=== PATIENT | female | born 1940 | race Caucasian/White ===

== ENCOUNTER 2019-06-11 19:49 | Inpatient (IN) | payer MEDICARE, OTHER, SELFPAY ==
--- NOTE | 2019-06-11 20:10 | ED_ITS ---
Entered by Celeste Rashid, acting as scribe for Li Stockton MD, [facility] [place]PI - URI/Sore Throat General: Chief Complaint: General Medical Stated Complaint: PNEUMONIA Time Seen by Provider: 06/11/19 20:06 History of Present Illness: HPI Narrative: 79 yo f came to the er by ems. Onset was today. Pt states that she is unsure why she is here today. Ems states that pt came from the [facility] and that she had an chest xray do ne yesterday and it shown that pt has pneumonia. Pt has dementia and was unsure what was going on. Consistency: intermittent Severity: mild Able to tolerate fluids by mouth: Yes Exacerbating factors: nothing Relieving factors: nothing Context: sick contacts Associated symptoms: Reports no associated symptoms Review of Systems General: Reports: ROS unobtainable due to medical condition (dementia) PFSH ED PFSH: Statuses (acute, chronic, etc) shown below reflect problem list status as previously entered and may not be historically accurate Medical History (Updated 06/12/19 @ 01:05 by Li Stockton MD, [facility] Alzheimer's dementia (Acute) Dyslipidemia (Acute) [place]'s disease (Acute) Hypertension (Acute) Hypothyroidism (Acute) Surgical History (Updated 06/11/19 @ 23:03 by Kirsten Bang MD) History of open reduction and internal fixation (ORIF) procedure (Acute) for R subtronchanteric femur fracture, done in 02/2019 at [facility] [place] Social History Smoking and tobacco status: unknown if ever smoked Physical Exam Const: COMMON NORMALS: no apparent distress, average body habitus, oriented x3, no limitations, healthy appearing, alert and well nourished HENMT: COMMON NORMALS: normocephalic, head/scalp atraumatic, hearing grossly normal bilaterally, external ears normal, EAC's normal, TM's normal bilaterally, external nose normal, nasal mucous membranes and turbinates normal, moist oral mucous membranes, oropharynx normal, dentition normal and gingiva normal HEAD & SCALP: normocephalic and atraumatic NOSE: external nose normal and nasal mucous membranes and turbinates normal EXTERNAL EAR: Yes external ears normal EXTERNAL AUDITORY CANAL: EAC's normal TYMPANIC MEMBRANE: TM's normal bilaterally Eye: COMMON NORMALS: PERRL, EOMs intact bilaterally, conjunctivae normal, no scleral icterus, no papilledema, normal visual mcdermott by confrontation and fundi normal bilaterally CONJUNCTIVA: Yes conjunctivae normal PUPIL: Yes PERRL DIRECT OPHTHALMOSCOPY: Yes no papilledema and Yes fundi normal bilaterally Neck/C-Spine: COMMON NORMALS: full ROM, supple, no meningeal signs, no JVD and no carotid bruits Chest: COMMONS NORMALS: inspection of chest normal and palpation of chest normal Resp: COMMON NORMALS: normal respiratory effort, no retractions and no use of accessory muscles AUSCULTATION: diminished lung sounds on the left Cardio: COMMON NORMALS: no JVD, regular rate, regular rhythm, S1 normal heart sound, S2 normal heart sound, no gallops, no clicks, no murmurs, no rub and peripheral pulses 2+ throughout RATE: regular rate RHYTHM: regular rhythm HEART SOUNDS: S1 normal and S2 normal PERIPHERAL PULSES: pulses 2+ throughout GI: COMMON NORMALS: normal to inspection, nondistended, normoactive bowel sounds, soft to palpation, non-tender, no hepatosplenomegaly, no masses and no bruits PALPATION: Yes soft and Yes no hepatosplenomegaly : COMMON NORMALS: Yes no CVA tenderness BLADDER/KIDNEY EXAM: Yes no CVA tenderness Back/Pelvis: COMMON NORMALS: no CVA tenderness Extremity: COMMON NORMALS: normal to inspection, full ROM, normal capillary refill, no joint enlargement, no clubbing, cyanosis or edema, no calf tenderness and no pedal edema Neuro: COMMON NORMALS: oriented x3 SENSORIUM/ORIENTATION: Yes alert MENINGEAL SIGNS: Yes no meningeal signs Skin: COMMON NORMALS: no rashes or lesions noted, no wounds, skin turgor normal, no jaundice, no petechiae and no mottling GENERAL SKIN EXAM: no rashes or lesions noted and turgor normal Procedures Chest Tube Chest Tube 1: Chest Tube Location: left and fifth interspace Size of Tube (cm): 58 Chest Tube Prep: Yes betadine prep Local Anesthetic: lidocaine 1% Amount of anesthesia used (mL): 5 Incision Made With: #11 blade Post Procedure: sutured to skin and sterile dressing applied Tube Drainage: blood Amount of initial drainage (mL): 2,400 Post Procedure CXR?: Yes Patient Tolerated Procedure: Yes Course Vital Signs: Vital signs: Vital Signs Temperature 98.2 F 06/11/19 20:21 Pulse Rate 90 06/12/19 00:54 Respiratory Rate 18 06/12/19 00:54 Blood Pressure 122/76 06/12/19 00:54 Pulse Oximetry 94 06/12/19 00:54 MDM - URI/Sore Throat MDM Narrative: Medical decision making narrative: Patient was sent to the ED from the half-way with a diagnosis of pneumonia. She had a chest x-ray done yesterday and they said it showed pneumonia so she was sent to the ED for evaluation. Chest x-ray done showed a white out on her left lung and on CT scan which showed massive pleural effusion with shift of the mediastinal contents to the right and compression of her lungs. Surprisingly she was hemodynamically stable however with concerns that she may suddenly decompensate given her age and the size of the effusion a decision was made to place a chest tube in the emergency department. A size 28 chest tube was inserted which drained bloody fluid. She drained about 2500 mL initially. She remained hemodynamically stable during and after the procedure. Chest x-ray performed after showed partial expansion of the left lung and there is no longer a right shift of the mediastinal contents. Lab Data: Labs: Lab Results 06/11/19 06/11/19 06/11/19 Range/Units 19:36 19:36 19:36 WBC 8.9 (4.0-10.0) 10^3/ uL RBC 4.57 (4.1-5.3) 10^6/u L Hgb 13.1 (11.5-15.3) g/dL Hct 43.2 (37.0-47.0) % MCV 94.5 (81-99) fL MCH 28.7 (28.0-34.0) pg MCHC 30.3 (30.0-36.0) g/dL RDW 13.3 (12.1-15.1) % Plt Count 416 H (130-400) 10^3/c mm MPV 9.9 (7.4-10.4) fL Neut % (Auto) 64.5 % Lymph % (Auto) 21.7 % [place] % (Auto) 10.5 % Eos % (Auto) 2.3 % Baso % (Auto) 0.7 % Neut # (Auto) 5.7 (1.8-7.7) 10^3/u L Lymph # (Auto) 1.9 (0.8-4.8) 10^3/u L [place]ck[place] # (Auto) 0.9 (0.2-0.9) 10^3/u L Eos # (Auto) 0.2 (0.0-0.8) 10^3/u L Baso # (Auto) 0.1 (0.0-0.1) 10^3/u L Nucleated RBC % (a uto) 0 % Nucleated RBCs # 0.0 /100WBC PT 14.60 H (10.5-13.3) SECO NDS INR 1.11 (0.8-1.2) Sodium 147 H (136-145) mmol/L Potassium 3.7 (3.5-5.1) mmol/L Chloride 107 (98-107) mmol/L Carbon Dioxide 28 (22-29) mmol/L Anion Gap 15.7 (5-19) BUN 20 (8-23) mg/dL Creatinine 0.7 (0.5-0.9) mg/dL Calcium 9.3 (8.8-10.2) mg/Dl Total Bilirubin 0.3 (0.15-1.2) mg/dL AST 24 (0-32) U/L ALT 11 (0-33) U/L Alkaline Phosphata se 128 H (35-105) IU/L Total Protein 7.2 (6.6-8.7) g/dL Albumin 3.8 (3.5-5.2) g/dL Globulin 3.4 (1.3-4.6) g/dL Influenza Type A A g (Negative) POC Influenza B Ag (Negative) 06/11/19 Range/Units Unknown WBC (4.0-10.0) 10^3/ uL RBC (4.1-5.3) 10^6/u L Hgb (11.5-15.3) g/dL Hct (37.0-47.0) % MCV (81-99) fL MCH (28.0-34.0) pg MCHC (30.0-36.0) g/dL RDW (12.1-15.1) % Plt Count (130-400) 10^3/c mm MPV (7.4-10.4) fL Neut % (Auto) % Lymph % (Auto) % [place] % (Auto) % Eos % (Auto) % Baso % (Auto) % Neut # (Auto) (1.8-7.7) 10^3/u L Lymph # (Auto) (0.8-4.8) 10^3/u L [place] # (Auto) (0.2-0.9) 10^3/u L Eos # (Auto) (0.0-0.8) 10^3/u L Baso # (Auto) (0.0-0.1) 10^3/u L Nucleated RBC % (a uto) % Nucleated RBCs # /100WBC PT (10.5-13.3) SECO NDS INR (0.8-1.2) Sodium (136-145) mmol/L Potassium (3.5-5.1) mmol/L Chloride (98-107) mmol/L Carbon Dioxide (22-29) mmol/L Anion Gap (5-19) BUN (8-23) mg/dL Creatinine (0.5-0.9) mg/dL Calcium (8.8-10.2) mg/Dl Total Bilirubin (0.15-1.2) mg/dL AST (0-32) U/L ALT (0-33) U/L Alkaline Phosphata se (35-105) IU/L Total Protein (6.6-8.7) g/dL Albumin (3.5-5.2) g/dL Globulin (1.3-4.6) g/dL Influenza Type A A g Negative (Negative) POC Influenza B Ag Negative (Negative) Discharge Plan Discharge Patient Disposition: Admitted As Inpatient Clinical Impression: Pleural effusion Condition: Stable Prescriptions: No Action latanoprost 0.005 % Drops 1 drp OPHTHALMIC (EYE) DAILY RF: 0 atorvastatin 10 mg Tablet 10 mg PO QPM RF: 0 donepezil 10 mg Tablet 10 mg PO DAILY RF: 0 levothyroxine 88 mcg Tablet 88 mcg PO DAILY RF: 0 Xanax 0.25 mg Tablet 0.25 mg PO DAILY PRN (Reason: Anxiety) RF: 0 Milk of Magnesia 400 mg/5 mL Suspension 5 ml PO DAILY PRN (Reason: Constipation) RF: 0 amlodipine 10 mg Tablet 10 mg PO DAILY RF: 0 aspirin 81 mg Tablet,Chewable 81 mg PO DAILY RF: 0 Remeron 15 mg Tablet 7.5 mg PO BEDTIME RF: 0 Flonase Allergy Relief 50 mcg/actuation [place],Suspension 1 spray INTRANASAL BEDTIME RF: 0 memantine 10 mg Tablet 10 mg PO BID RF: 0 Tylenol 325 mg Capsule 325 mg PO QID PRN (Reason: Pain) RF: 0 Ferrex 150 Forte Plus 150-60-25-1 vf-wh-boc-mg Capsule 1 cap PO BID RF: 0 Adults Multivitamin 18 mg iron-400 mcg-25 mcg Tablet 1 tab PO DAILY RF: 0 Colace Liq 50 mg/ml suspension 10 ml PO BID PRN (Reason: Constipation) RF: 0 Referrals: Linda Brooke NP [Primary Care Provider] - Isai Lechuga MD [Family Provider] - Coding Level of Care Code ED Document Management Analyst for Chg Fwd Exam Problem Focused The documentation recorded by the Rachid colvin Stephanie Lyn, accurately reflects the service I personally performed and the decisions made by Mahin kamara Adegoke I, MD, [facility] Jun 11, 2019 19:49
[2019-06-11 20:21] VITALS: BP 132/69; PULSE 98; RESP 17; TEMP 36.8; O2SAT 98; BMI 23.0
--- NOTE | 2019-06-11 20:21 | XR_ITS ---
WS: [id number] Portable AP upright chest, 06/11/2019 Clinical Data: shortness of breath Comparison: Portable chest, 03/26/2019. Findings: There is a massive left pleural effusion causing deviation of the trachea and heart from le ft to right. The right lung is clear. The pulmonary vascularity is not increased. No pneumonia or pne umothorax is seen. XR/XR chest 1V portable [id number] Impression: 1. Huge left pleural effusion. 2. Deviation of the trachea and heart from left to right.
[2019-06-11 20:36] VITALS: BP 132/69; PULSE 97; PULSE 98; RESP 17; O2SAT 99
[2019-06-11 21:18] LABS: Influenza A by IFA Negative (Negative); Influenza B by IFA Negative (Negative)
[2019-06-11 21:18] LABS: Basophils # 0.1 10^3/uL (0.0-0.1); Basophils % 0.7 %; Eosinophils # 0.2 10^3/uL (0.0-0.8); Eosinophils % 2.3 %; Hematocrit 43.2 % (37.0-47.0); Hemoglobin 13.1 g/dL (11.5-15.3); Lymphocytes # 1.9 10^3/uL (0.8-4.8); Lymphocytes % 21.7 %; Mean Corpuscular HGB Conc 30.3 g/dL (30.0-36.0); Mean Corpuscular Hemoglobin 28.7 pg (28.0-34.0); Mean Corpuscular Volume 94.5 fL (81-99); Mean Platelet Volume 9.9 fL (7.4-10.4); Monocytes # 0.9 10^3/uL (0.2-0.9); Monocytes % 10.5 %; Neutrophils # 5.7 10^3/uL (1.8-7.7); Neutrophils % 64.5 %; Nucleated Red Blood Cells % 0 %; Platelet Count 416 10^3/cmm (130-400); Red Blood Count 4.57 10^6/uL (4.1-5.3); Red Cell Distribution Width 13.3 % (12.1-15.1); White Blood Count 8.9 10^3/uL (4.0-10.0)
[2019-06-11 21:36] LABS: Alanine Aminotransferase 11 U/L (0-33); Albumin Level 3.8 g/dL (3.5-5.2); Alkaline Phosphatase 128 IU/L (35-105); Anion Gap 15.7 (5-19); Aspartate Amino Transferase 24 U/L (0-32); Blood Urea Nitrogen 20 mg/dL (8-23); Calcium 9.3 mg/Dl (8.8-10.2); Carbon Dioxide 28 mmol/L (22-29); Chloride 107 mmol/L (98-107); Globulin 3.4 g/dL (1.3-4.6); Potassium 3.7 mmol/L (3.5-5.1); Sodium 147 mmol/L (136-145); Total Bilirubin 0.3 mg/dL (0.15-1.2); Total Protein 7.2 g/dL (6.6-8.7)
--- NOTE | 2019-06-11 21:52 | CTR_ITS ---
PROCEDURE INFORMATION: Exam: CT Chest With Contrast Exam date and time: 06/11/2019 10:10 PM Age: 79 years old Clinical indication: Shortness of breath; Patient HX: Limited HX due to PT condition, no recent priors, no family traveled to er with patient. ; Additional info: SOB TECHNIQUE: Imaging protocol: Computed tomography of the chest with intravenous contrast. Total DLP: 577.33 mGy-cm Radiation optimization: All CT scans at this facility use at least one of these dose optimization techniques: automated exposure control; mA and/or kV adjustment per patient size (includes targeted exams where dose is matched to clinical indication); or iterative reconstruction. Contrast material: OMNIPAQUE 300; Contrast volume: 95 ml; Contrast route: IV; COMPARISON: CR XR chest 1V portable [id number] 06/11/2019 8:48 PM FINDINGS: Lungs: Right lower lobe atelectasis versus infiltrate. Pleural space: Unremarkable. No pneumothorax. No pleural effusion. Heart: Coronary artery atherosclerotic calcifications. Mediastinum: Large left pleural effusion with compression of the left lung and rightward mediastinal shift. Aorta: Unremarkable. No aortic aneurysm. Lymph nodes: Unremarkable. No enlarged lymph nodes. Bones/joints: Unremarkable. No acute fracture. Soft tissues: Unremarkable. CT/CT chest w con* [id number] IMPRESSION: 1. Large left pleural effusion with compression of the left lung and rightward mediastinal shift. 2. Right lower lobe atelectasis versus infiltrate. Radiation Dose CTDIVOL = (mGy): DLP = 577.33 (mGy-cm)
[2019-06-11 22:32] VITALS: BP 150/79; PULSE 92; RESP 14; O2SAT 97
[2019-06-11] MEDS: iohexol 300 mg/mL 100 mL Btl IV (22:46)
[2019-06-11] MEDS: cefepime 2,000 MG in sodium chloride 0.9% (plus) 50 ML 100 MG IV (22:55)
--- NOTE | 2019-06-11 23:00 | P.HP_ITS ---
Providers/Chief Complaint Admitting Physician: Kirsten Bang MD Primary Care Provider: Linda Brooke NP Chief Complaint: PNEUMONIA History of Present Illness Therese Rashid is a 79 year old female with PMHx of HTN, Hypothyroidism, Alzheimer's dementia, Pat's disease, Dyslipidemia; presents via EMS from [place] for evaluation of noted hypoxia as well as an unwitnessed fall earlier today. Patient is significantly disoriented at baseline so unable to provide much history, history obtained from [facility] staff as well as review of medical record. Per nursing staff patient is alert but disoriented at baseline, typically ambulates independently and is quite interactive but at some point today was found on the floor having hit her head on the corner of a trash can in her room. She reportedly did not seem different in terms of her mental status following the fall but at some point got a chest x-ray which was noted as abnormal with questionable pneumonia so she was sent to the hospital for further evaluation. She was apparently slightly hypoxic on EMS arrival and was placed on 2 L nasal cannula. Does not appear to be in any distress during my assessment in the ER. Chest x-ray was reviewed by me and with Dr. Stockton and patient has white out on the left so CT scan of the chest was ordered. She has a large left pleural effusion with noted mediastinal shift to the right. She has some evidence of lower extremity edema as well, there is no baseline echo on record and she is not on any diuretics per review of her medications. Her vital signs are stable though she is somewhat hypoxic on room air so requested that she be placed on 2 L nasal cannula. She did receive a dose of cefepime due to concern for infection prior to imaging being available. Her lab work indicates a normal white count at 8.9, normal hemoglobin at 13.1, BNP of 669, normal renal function, negative influenza screen. I will start her on IV diuresis, order echo and request ultrasound-guided thoracentesis for the a.m. As patient is not currently in any distress will carefully watch her overnight, will request CSU admission. Due to history of unwitnessed fall will order CT scan of the head as well. Confirmed CODE STATUS is DNR/DNI with [facility] staff. Review of Systems General: Reports: ROS unobtainable due to mental status Medications/Allergies Home Medications Medication Instructions Recorded Confirmed Last Taken Type Colace Liq 10 ml PO BID PRN 06/11/19 06/11/19 Unknown History acetaminophen [Tylenol] 325 mg PO QID PRN 06/11/19 06/11/19 Unknown History alprazolam [Xanax] 0.25 mg PO DAILY PRN 06/11/19 06/11/19 Unknown History amlodipine 10 mg PO DAILY 06/11/19 06/11/19 Unknown History aspirin 81 mg PO DAILY 06/11/19 06/11/19 Unknown History atorvastatin 10 mg PO QPM 06/11/19 06/11/19 Unknown History donepezil 10 mg PO DAILY 06/11/19 06/11/19 Unknown History fluticasone propionate [Flonase 1 spray INTRANASAL BEDTIME 06/11/19 06/11/19 Unknown History Allergy Relief] iron aspgly,[id number]-Na-nsp 1 cap PO BID 06/11/19 06/11/19 Unknown History [Ferrex 150 Forte Plus] latanoprost 1 drp OPHTHALMIC (EYE) DAILY 06/11/19 06/11/19 Unknown History levothyroxine 88 mcg PO DAILY 06/11/19 06/11/19 Unknown History magnesium hydroxide [Milk of 5 ml PO DAILY PRN 06/11/19 06/11/19 Unknown History Magnesia] memantine 10 mg PO BID 06/11/19 06/11/19 Unknown History mirtazapine [Remeron] 7.5 mg PO BEDTIME 06/11/19 06/11/19 Unknown History tsngfvlrvplv-ilg-qaqs-FA-vit K 1 tab PO DAILY 06/11/19 06/11/19 Unknown History [Adults Multivitamin] Allergies Allergy/AdvReac Type Severity Reaction Status Date / Time Aohxfrq-Arc-Xjw Reductase Allergy Unknown Verified 06/11/19 20:35 Inhibitor sulfacetamide Allergy Unknown Verified 06/11/19 20:34 PFSH Acute 2 PFSH: Statuses (acute, chronic, etc) shown below reflect problem list status as previously entered and may not be historically accurate Medical History (Updated 06/11/19 @ 23:28 by Kirsten Bang MD) Alzheimer's dementia (Acute) Dyslipidemia (Acute) Exeland's disease (Acute) Hypertension (Acute) Hypothyroidism (Acute) Surgical History (Updated 06/11/19 @ 23:03 by Kirsten Bang MD) History of open reduction and internal fixation (ORIF) procedure (Acute) for R subtronchanteric femur fracture, done in 02/[address] [facility] [place] Social History Smoking and tobacco status: unknown if ever smoked Vitals/I&O/Wt Last Vital Signs Temp 98.2 F 06/11/19 20:21 Pulse 92 06/11/19 22:32 Resp 14 06/11/19 22:32 BP 150/79 06/11/19 22:32 Pulse Ox 97 06/11/19 22:32 Weight last 48 hrs Weight 58.967 kg Physical Exam Const: COMMON NORMALS: no apparent distress GENERAL APPEARANCE: cooperative and comfortable ORIENTATION/CONSCIOUSNESS: Yes awake; not oriented to person, not oriented to place and not oriented to time HENMT: COMMON NORMALS: normocephalic, head/scalp atraumatic and moist oral mucous membranes HEAD & SCALP: normocephalic and atraumatic OTHER: hard of hearing Eye: COMMON NORMALS: PERRL, EOMs intact bilaterally and conjunctivae normal CONJUNCTIVA: Yes conjunctivae normal PUPIL: Yes PERRL Neck/C-Spine: COMMON NORMALS: full ROM GENERAL: Yes normal visual inspection and Yes trachea midline Resp: COMMON NORMALS: normal respiratory effort, no retractions, no use of accessory muscles and clear to auscultation bilaterally EFFORT & INSPECTION: Yes able to speak in complete sentences, Yes symmetric chest movement and No tachypneic OTHER: equal air entry bilaterally, intermittently desaturates on RA to high 80s, no accessory muscle use, no retractions Cardio: COMMON NORMALS: regular rate, regular rhythm, S1 normal heart sound, S2 normal heart sound and no murmurs RATE: regular rate RHYTHM: regular rhythm HEART SOUNDS: S1 normal and S2 normal GI: COMMON NORMALS: normal to inspection, nondistended, normoactive bowel sounds, soft to palpation and non-tender PALPATION: Yes soft Extremity: COMMON NORMALS: normal to inspection, full ROM and no clubbing, cyanosis or edema; negative for no pedal edema Neuro: COMMON NORMALS: oriented x3, moves all extremities, no focal motor deficits and no sensory deficits noted Psych: COMMON NORMALS: cooperative, affect normal and speech normal SPEECH: Yes normal speech THOUGHT PROCESS: normal thought process Skin: COMMON NORMALS: no rashes or lesions noted, no jaundice, no petechiae and no mottling GENERAL SKIN EXAM: no rashes or lesions noted Data : 06/11/19 19:36 06/11/19 19:36 A&P Assessment and plan (1) Abnormal CXR: -noted white-out on L side, report pending -CT chest done showing large left pleural effusion with rightward mediastinal shift -Request ultrasound-guided thoracentesis in a.m. Will keep NPO after midnight -Close monitoring of respiratory status -Supplemental oxygen as needed; BiPAP if needed -No baseline echo so order this -start on IV diuresis with Lasix -close monitoring of vital signs -monitor Is & Os, daily weights -monitor renal function, lytes with diuresis -no need for antibiotics as unlikely to be infection -telemetry monitoring -hold AC, aspirin in anticipation of thoracentesis -check coags Status: Acute Code(s): R93.89 - Abnormal findings on diagnostic imaging of other specified body structures (2) Alzheimer's dementia: -at baseline is alert but disoriented -resume dementia meds -fall precautions, aspiration precautions -re-orient as needed Status: Acute Qualifiers: Alzheimer's disease onset: unspecified onset Dementia behavioral disturbance: without behavioral disturbance Qualified Code(s): G30.9 - Alzheimer's disease, unspecified; F02.80 - Dementia in other diseases classified elsewhere without behavioral disturbance Code(s): G30.9 - Alzheimer's disease, unspecified; F02.80 - Dementia in other diseases classified elsewhere without behavioral disturbance (3) Hypertension: -monitor vital signs -per NH is on catapres patch qweekly and amlodipine Status: Acute Qualifiers: Hypertension type: essential hypertension Qualified Code(s): I10 - Essential (primary) hypertension Code(s): I10 - Essential (primary) hypertension (4) Hypothyroidism: -resume levothyroxine Status: Acute Qualifiers: Hypothyroidism type: unspecified Qualified Code(s): E03.9 - Hypothyroidism, unspecified Code(s): E03.9 - Hypothyroidism, unspecified (5) Dyslipidemia: -resume statin Status: Acute Code(s): E78.5 - Hyperlipidemia, unspecified Additional A&P Information -Advanced age -Exeland's disease -keep NPO after midnight for thoracentesis -DVT ppx with SCDs for now, hold AC for procedure -Dispo: return [facility] -Code status: DNR/DNI; paperwork in chart, confirmed with [facility] staff -admit to [facility] Attestations Medical Necessity Statement*: Therese Rashid's hospital stay will require greater than 2 midnights for management of noted large left pleural effusion, requiring IV diuresis and pending thoracentesis; with need for close monitoring of respiratory status. Time Spent in Patient Care: Greater than 35 minutes (>than 50% of time spent in counselling and/or direct pt care on unit) . Coding Level of Care Code Acute Bed Setter for Brian Fwd Diagnoses Abnormal CXR R93.89 Alzheimer's dementia G30.9; F02.80 Alzheimer's disease onset: unspecified onset Dementia behavioral disturbance: without behavioral disturbance Hypertension I10 Hypertension type: essential hypertension Hypothyroidism E03.9 Hypothyroidism type: unspecified Dyslipidemia E78.5
[2019-06-11 23:18] VITALS: BP 127/76; PULSE 64; PULSE 71; RESP 17; O2SAT 95
--- NOTE | 2019-06-11 23:21 | CTR_ITS ---
PROCEDURE INFORMATION: Exam: CT Head Without Contrast Exam date and time: 06/11/2019 11:28 PM Age: 79 years old Clinical indication: Altered mental status/memory loss; Confusion or disorientation; Additional info: Unwitnessed fall TECHNIQUE: Imaging protocol: Computed tomography of the head without contrast. Total DLP: 797.18 mGy-cm Radiation optimization: All CT scans at this facility use at least one of these dose optimization techniques: automated exposure control; mA and/or kV adjustment per patient size (includes targeted exams where dose is matched to clinical indication); or iterative reconstruction. COMPARISON: No relevant prior studies available. 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 Mild atrophy and moderate white matter chronic microvascular changes are noted. No hemorrhage or CT evidence of acute infarction is seen. Ventricles: Normal. No ventriculomegaly. Bones/joints: Unremarkable. No acute fracture. Sinuses: Visualized sinuses are unremarkable. No fluid levels. Mastoid air cells: Visualized mastoid air cells are well aerated. Soft tissues: Unremarkable. CT/CT head wo con* [id number] IMPRESSION: No acute intracranial abnormality Radiation Dose CTDIVOL = (mGy): DLP = 797.18 (mGy-cm)
[2019-06-11] MEDS: fentaNYL 50 mcg/mL INJ 2mL IVP (23:40)
[2019-06-11] MEDS: lidocaine 1% INJ 20 mL INTRADERMA (23:50)
[2019-06-11 23:59] LABS: INR 1.11 (0.8-1.2)
[2019-06-12] VITALS (9 sets, daily range): BP systolic 113–126; BP diastolic 60–79; PULSE 81–91; RESP 18–28; TEMP 36.4–37.1; O2SAT 94–97
--- NOTE | 2019-06-12 00:24 | XR_ITS ---
WS: [id number] Portable AP upright chest, 06/12/2019, 2429 hours. Clinical Data: Post chest tube insertion Comparison: Portable chest, 06/11/2019 Findings: A left chest tube has been inserted and the tip ends near the superior aspect of the left p leural space. There is a great reduction in the left pleural fluid with a moderate residual. There is a left apical pneumothorax of 5%. The mediastinal shift is no longer present and the trachea and hea rt are in normal position. The right lung remains clear. Monitor leads on the chest wall. XR/XR chest 1V portable [id number] Impression: 1. Insertion of left chest tube with reduction of left pleural fluid. 2. Small left apical pneumothorax. 3. Reduction of left to right mediastinal shift.
[2019-06-12 01:11] LABS: C Reactive Protein 29.4 mg/L (0.0-4.9); Glucose 113 mg/dL (74-106)
--- NOTE | 2019-06-12 01:42 | XR_ITS ---
WS: [id number] Portable AP upright chest, 06/12/2019, 0139 hours. Clinical Data: chest tube placement Comparison: Portable chest, 06/12/2019, 2429 hours. Findings: The left chest tube remains in the same position. There is still a residual moderate left p leural effusion. There are opacities throughout the left lung which may represent a pneumonia. The ri ght lung remains clear. The small left apical pneumothorax has not changed. XR/XR chest 1V portable [id number] Impression: 1. No change in left chest tube, left apical pneumothorax and moderate left eff usion. 2. Opacities throughout the left lung which could represent pneumonia.
[2019-06-12] MEDS: FUROsemide 10 mg/mL SDV 4mL 40 MG IVP ×3 (01:56→23:11)
--- NOTE | 2019-06-12 02:05 | PC.NURSE ---
Called report to Mary in CSU
--- NOTE | 2019-06-12 03:22 | PC.NURSE ---
0230: Patient admitted to room 111-1 from ED via stretcher with Left Pleural Effusion and Acute CHF with Exacerbation. Chest Tube in place to LLL of lung draining blood tinged fluid into pleur evac with 10cm of dry suction. Soft wrist restraints in place and checked. Able to get 2 fingers under restraints without difficulty. Chest tube secured with tape. Patient opened eyes for a very short time after being transferred to hospital bed from ED stretcher. Unable to ask questions secondary to patient's status and dementia. Oxygen applied at 3L/NC. This nurse was told that patient fell at long-term yesterday;however, up until that time, had been up and ambulating. No family at bedside. Will monitor.
--- NOTE | 2019-06-12 03:31 | PC.NURSE ---
Chest tube with 600ml in pleur evac upon arrival to floor. Area marked. Will monitor.
--- NOTE | 2019-06-12 04:40 | PC.NURSE ---
Patient awake. Soft wrist restraints in place. Had chest tube wrapped around her wrist. Explained to patient about not pulling on chest tube. It hurts and I want it out. Chest tube dressing re-enforced. Will monitor.
--- NOTE | 2019-06-12 04:55 | PC.NURSE ---
Sitter at bedside. Patient still attempting to pull chest tube out. Keeps complaining that it hurts. Informed by staff and sitter the reasoning behind the chest tube;however, patient is not comprehending. Will monitor.
[2019-06-12 04:56] LABS: Add Urine Microscopic? YES; Bilirubin Urine Neg (NEGATIVE); Blood Urine 2+ (Negative); Glucose Urine UA Norm (Normal); Ketones Urine Negative (Negative); Leukocyte Esterase Urine Negative (Negative); Nitrate Urine Negative (Negative); Protein Urine Neg (Negative); Specific Gravity, Urine 1.018 (1.005-1.030); Sulfosalicylic Acid Urine Negative; Urine Appearance Clear (CLEAR); Urine Color Straw (Yellow); Urobilinogen Urine Norm (Negative); pH Urine 8 (5-7)
[2019-06-12 05:24] LABS: Add Urine Culture? No; RBC Urine 0-4 /hpf (0-2)
[2019-06-12 05:53] LABS: Basophils # 0.1 10^3/uL (0.0-0.1); Basophils % 0.6 %; Eosinophils % 0.4 %; Hematocrit 44.8 % (37.0-47.0); Hemoglobin 13.8 g/dL (11.5-15.3); Lymphocytes % 9.9 %; Mean Corpuscular HGB Conc 30.8 g/dL (30.0-36.0); Mean Corpuscular Hemoglobin 29.1 pg (28.0-34.0); Mean Corpuscular Volume 94.3 fL (81-99); Mean Platelet Volume 9.7 fL (7.4-10.4); Monocytes # 0.8 10^3/uL (0.2-0.9); Monocytes % 7.7 %; Neutrophils # 8.5 10^3/uL (1.8-7.7); Nucleated Red Blood Cells % 0 %; Platelet Count 371 10^3/cmm (130-400); Red Blood Count 4.75 10^6/uL (4.1-5.3); Red Cell Distribution Width 13.2 % (12.1-15.1); White Blood Count 10.4 10^3/uL (4.0-10.0)
[2019-06-12 06:11] LABS: Anion Gap 16.4 (5-19); Blood Urea Nitrogen 19 mg/dL (8-23); Calcium 8.9 mg/Dl (8.8-10.2); Carbon Dioxide 28 mmol/L (22-29); Chloride 105 mmol/L (98-107); Glucose 120 mg/dL (74-106); Potassium 3.4 mmol/L (3.5-5.1); Sodium 146 mmol/L (136-145)
[2019-06-12] MEDS: levothyroxine 88 mcg Tablet PO ×2 (10:54→10:56)
[2019-06-12] MEDS: memantine 5 mg tablet 10 MG PO ×2 (10:55→17:32)
[2019-06-12] MEDS: multivitamin therapeutic Tablet 1 TAB PO (10:56)
[2019-06-12] MEDS: amlodipine 10 mg Tablet PO (10:57)
[2019-06-12] MEDS: donepezil 5 MG Tablet 10 MG PO (10:57)
--- NOTE | 2019-06-12 15:38 | PC.CHAP ---
Pastoral Care Encounter/Spiritual Assessment Type of Contact [] Declined detective and intelligence analyst visit [] Patient/Family/Request visit [] Outpatient visit [x] Follow-up visit [] Physician referral [] Code/Alert [] Routine visit [] Staff referral [] Actively dying [] Patient sleeping [] Family support [] [] Out of room [] Palliative care [] [] Receiving care in room [] Pre-surgical visit [] Trauma [] Long length of stay [] ICU visit [] Other: Relational/Emotional Strength [] Patient feels connected with others/family/visitors/staff [] Distress [] Loneliness/isolation [] Abandonment Spirituality of Patient [] Person of Charlee [] Attends Voodoo of their Charlee [] Believes in Prayer [] Reads Bible or Hoahaoism materials [] There are Spiritual issues to be addressed Trimming Operator Interventions [] Prayer [] Active listening [] Non-anxious presence [] Spiritual/emotional support [] Crisis/trauma care [] Spiritual counseling [] Bereavement support [] Provided bereavement packet [] Provided Bible/devotional materials [] Provided toy/stuffed animal, coloring book to patient or family member [] Completed spiritual assessment [] Provided Communion [] Anointing/[place] [] Salvation [] Other: Impact on Illness or Injury [] Angry [] Fearful [] Anxious [] Often cries [] Exhaustion [] Unable to work [] Unable to attend cheondoism [] Unable to walk/stand [] Unable to read [] Unable to drive [] Unable to eat/drink [] Unable to sleep [] Unable to be with family [] Other: Summary was asleep needs yo have follow up ludwig td Time spent with patient
--- NOTE | 2019-06-12 16:41 | PC.NURSE ---
conrad gonzalez from [facility] called to check on pt and states pt did not fall prior to this admission.ems was called due to respiratory distress.pt did fall...approx 1 month ago and [place] [facility] [place]
--- NOTE | 2019-06-12 18:05 | PM.CONSULT ---
Providers/Reason For Consult Consulting Physican/Specialty*: Dr. Bang Reason for Consult*: Large left hemorrhagic effusion Attending Physician: David Jorgensen Primary Care Provider: Linda Brooke NP History of Present Illness History of Present Illness Therese Rashid is a 79 year old female who was admitted in the early hours of the morning with a large left pleural effusion with mediastinal shift. A left chest tube was placed with recovery of over 2 L of bloody effusion. Ms. Rasihd has fairly advanced dementia and is a resident at a local skilled care facility and apparently was initially reported to have been found having fallen. With further discussion today between nursing service and the nursing staff at [facility], it was determined that she had not actually fallen and that she was actually being referred over because of increasing respiratory difficulties. CT scan of the chest confirmed this substantial effusion with mediastinal shift. CT scan of the head was negative for acute intracranial pathology. Left chest tube is in place with substantial improved aeration to the left lung with a small apical pneumothorax. I was consulted to assist with the management of this chest tube. Her son has been at bedside and conferred with our hospitalist colleagues. Given her multiple medical problems, they have relayed to me that he is in concurrence with consideration for conservative management of this effusion with the currently placed chest tube. 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 Chest tube output since this morning has been approximately 80 cc. She appears to be resting quite comfortably. She can answer yes and no questions though cannot answer questions concerning orientation or other facts. Review of Systems Narrative: I am unable to obtain a review of systems through questions for Ms. Rashid. Meds/Allergies Home Medications and Allergies Home Medications Medication Instructions Recorded Confirmed Type Colace Liq 10 ml PO BID PRN 06/11/19 06/11/19 History acetaminophen [Tylenol] 325 mg PO QID PRN 06/11/19 06/11/19 History alprazolam [Xanax] 0.25 mg PO DAILY PRN 06/11/19 06/11/19 History amlodipine 10 mg PO DAILY 06/11/19 06/11/19 History aspirin 81 mg PO DAILY 06/11/19 06/11/19 History atorvastatin 10 mg PO QPM 06/11/19 06/11/19 History donepezil 10 mg PO DAILY 06/11/19 06/11/19 History fluticasone propionate [Flonase 1 spray INTRANASAL BEDTIME 06/11/19 06/11/19 History Allergy Relief] iron aspgly,[id number] 1 cap PO BID 06/11/19 06/11/19 History [Ferrex 150 Forte Plus] latanoprost 1 drp OPHTHALMIC (EYE) DAILY 06/11/19 06/11/19 History levothyroxine 88 mcg PO DAILY 06/11/19 06/11/19 History magnesium hydroxide [Milk of 5 ml PO DAILY PRN 06/11/19 06/11/19 History Magnesia] memantine 10 mg PO BID 06/11/19 06/11/19 History mirtazapine [Remeron] 7.5 mg PO BEDTIME 06/11/19 06/11/19 History zsktfefjckzc-bay-maad-FA-vit K 1 tab PO DAILY 06/11/19 06/11/19 History [Adults Multivitamin] Allergies Allergy/AdvReac Type Severity Reaction Status Date / Time Xkrrtwo-Hyn-Lot Reductase Allergy Unknown Verified 06/11/19 20:35 Inhibitor sulfacetamide Allergy Unknown Verified 06/11/19 20:34 Current Medications Current Medications Generic Name Dose Route Start Last Admin Trade Name Freq PRN Reason Stop Dose Admin Amlodipine Besylate 10 mg 06/12/19 09:00 06/12/19 10:57 Norvasc PO 10 mg DAILY SARAH Administration Donepezil HCl 10 mg 06/12/19 09:00 06/12/19 10:57 Aricept PO 10 mg DAILY SARAH Administration Furosemide 40 mg 06/11/19 23:21 06/12/19 11:41 Lasix IVP 40 mg Q12H SARAH Administration Levothyroxine Sodium 88 mcg 06/12/19 09:00 06/12/19 10:56 Synthroid PO 88 mcg DAILY SARAH Administration Multivitamins Therapeutic 1 tab 06/12/19 09:00 06/12/19 10:56 Multivitamin Tab PO 1 tab DAILY SARAH Administration Potassium Chloride 40 meq 06/12/19 09:00 06/12/19 10:54 Klor-Con 10 PO 40 meq DAILY SARAH Administration PFSH Acute PFSH: Statuses (acute, chronic, etc) shown below reflect problem list status as previously entered and may not be historically accurate Medical History (Updated 06/12/19 @ 01:05 by Li Stockton MD, [facility] [place]) Alzheimer's dementia (Acute) Dyslipidemia (Acute) Quay's disease (Acute) Hypertension (Acute) Hypothyroidism (Acute) Surgical History (Updated 06/11/19 @ 23:03 by Kirsten Bang MD) History of open reduction and internal fixation (ORIF) procedure (Acute) for R subtronchanteric femur fracture, done in 02/2019 at [facility] [place] Social History Smoking and tobacco status: unknown if ever smoked Vitals/I&O/Wt Last Vital Signs Temp 98.7 F 06/12/19 16:00 Pulse 86 06/12/19 16:00 Resp 28 H 06/12/19 16:00 BP 125/60 06/12/19 16:00 Pulse Ox 96 06/12/19 16:00 06/12/19 06/12/19 06/12/19 06:59 14:59 22:59 Intake Total 0 / 0 Output Total 75 / 75 1999 Balance -75 / -75 -1999 Weight last 48 hrs Weight 131 lb 11.2 oz Weight 130 lb Physical Exam Const: COMMON NORMALS: negative for oriented x3 HENMT: COMMON NORMALS: normocephalic, hearing grossly normal bilaterally and external ears normal HEAD & SCALP: normocephalic FACE & SINUS: normal facial exam EXTERNAL EAR: Yes external ears normal Neck/C-Spine: COMMON NORMALS: no lymphadenopathy; negative for full ROM Chest: COMMONS NORMALS: inspection of chest normal (Left chest tube in place. No obvious subcutaneous emphysema or localized palpable tenderness other than the chest tube insertion site) Resp: COMMON NORMALS: no retractions and no use of accessory muscles AUSCULTATION: diminished lung sounds (Left side) on the left throughout PERCUSSION: dullness Mid: left and Lower: left Neuro: COMMON NORMALS: moves all extremities and no focal motor deficits; negative for oriented x3 Urinary Catheter Management^: Yancey: Cath Placed During This Visit: no A&P Assessment and plan (1) Pleural effusion: Large left pleural effusion, successfully treated with chest tube I recommend continue current chest tube drainage, with discontinuation determined by chest tube output and pulmonary status Status: Acute Code(s): J90 - Pleural effusion, not elsewhere classified Consult Attestations Medical Necessity Statement: Large bloody left pleural effusion, treated with chest tube Coding Level of Care Code Acute Byproducts Operator for Chg Fwd History Expanded Problem Focused Exam Expanded Problem Focused Medical Decision Making Moderate Complexity Diagnoses Pleural effusion J90
--- NOTE | 2019-06-12 19:50 | PM.PN ---
Subjective Subjective: Interval history: This morning she is asleep, but wakes up very easily. She denies any pain. Reports she is feeling well. Not oriented to place or year. Denies pain in her chest or shortness of breath. One-to-one sitter is at bedside. Vitals/I&O/Wt Last Vital Signs Temp 98.2 F 06/12/19 19:20 Pulse 91 06/12/19 19:20 Resp 22 H 06/12/19 19:20 BP 126/74 06/12/19 19:20 Pulse Ox 97 06/12/19 19:20 06/12/19 06/12/19 06/12/19 06:59 14:59 22:59 Intake Total 0 / 0 120 / 120 Output Total 75 / 75 1999 / 0 Balance -75 / -75 -1999 40 / -1960 Weight last 48 hrs Weight 59.738 kg Weight 58.967 kg Physical Exam Const: COMMON NORMALS: no apparent distress HENMT: COMMON NORMALS: oropharynx normal Neck/C-Spine: COMMON NORMALS: no JVD Chest: OTHER: Left-sided chest tube connected to Pleur-evac. Resp: COMMON NORMALS: normal respiratory effort and clear to auscultation bilaterally AUSCULTATION: clear to auscultation bilaterally Cardio: COMMON NORMALS: no JVD, regular rhythm, S1 normal heart sound, S2 normal heart sound and no murmurs RHYTHM: regular rhythm HEART SOUNDS: S1 normal and S2 normal GI: COMMON NORMALS: normal to inspection, nondistended, normoactive bowel sounds, soft to palpation and non-tender PALPATION: Yes soft Extremity: COMMON NORMALS: no joint enlargement and no pedal edema Neuro: COMMON NORMALS: moves all extremities Skin: COMMON NORMALS: no rashes or lesions noted GENERAL SKIN EXAM: no rashes or lesions noted Urinary Catheter Management^: Yancey: Cath Placed During This Visit: no A&P Assessment and plan (1) Pleural effusion: Bloody pleural effusion. Reported 2400 mL drained in ER after placement of chest tube due to compression of left lung, as well as mediastinal shift to the right. Unfortunately no fluid has been sent to the lab. Etiology is not clear for the bloody effusion. H&P reports unwitnessed fall with patient found down on the floor. She certainly is at risk of falls. Repeat discussion of hospital nursing staff with senior living reporting that no fall was seen or suspected. Reported to have had decline in oxygenation. She is afebrile, without leukocytosis, denies chest pain or shortness of breath. On expansion of the left lung appears to have some patchy findings, possibly atelectasis. Pneumonia cannot be entirely excluded, but considered less likely. Given her risk of falls, with history of falls, at this time would still consider this may be the most likely etiology, otherwise discussed with her son other etiologies are possible including possibilities like malignancy. Given her overall poor functional status, advanced dementia, preference would be given for management of the current pleural effusion, with otherwise emphasis on comfort. She has been on aspirin prior to admission per home medication list, although it is not clear as to why. Her son is not sure. Denies history of WA or CVA. He is agreeable with discontinuation. Thoracic surgery recommendations appreciated. Status: Acute Code(s): J90 - Pleural effusion, not elsewhere classified (2) Alzheimer's dementia: Advanced dementia. Status: Acute Qualifiers: Alzheimer's disease onset: unspecified onset Dementia behavioral disturbance: without behavioral disturbance Qualified Code(s): G30.9 - Alzheimer's disease, unspecified; F02.80 - Dementia in other diseases classified elsewhere without behavioral disturbance Code(s): G30.9 - Alzheimer's disease, unspecified; F02.80 - Dementia in other diseases classified elsewhere without behavioral disturbance (3) Hypertension: Blood pressures have been at goal. Status: Acute Qualifiers: Hypertension type: essential hypertension Qualified Code(s): I10 - Essential (primary) hypertension Code(s): I10 - Essential (primary) hypertension (4) Hypothyroidism: levothyroxine Status: Acute Qualifiers: Hypothyroidism type: unspecified Qualified Code(s): E03.9 - Hypothyroidism, unspecified Code(s): E03.9 - Hypothyroidism, unspecified (5) Dyslipidemia: statin Status: Acute Code(s): E78.5 - Hyperlipidemia, unspecified Additional A&P Information Advanced age Pat's disease Attestations Medical Necessity Statement*: Continue admission for assessment management of bloody pleural effusion with chest tube. Coding Level of Care Code Acute Insurance Healthcare Consultant for [facility] Diagnoses Pleural effusion J90 Alzheimer's dementia G30.9; F02.80 Alzheimer's disease onset: unspecified onset Dementia behavioral disturbance: without behavioral disturbance Hypertension I10 Hypertension type: essential hypertension Hypothyroidism E03.9 Hypothyroidism type: unspecified Dyslipidemia E78.5
[2019-06-12] MEDS: latanoprost 0.005% Op Soln 2.5 mL Btl 1 DROP EYE-BOTH (21:40)
--- NOTE | 2019-06-12 22:08 | PC.NURSE ---
Lying in bed with sitter at bedside. Pleur a vac draining blood tinged fluid. Soft wrist restraints on patient;however, they are left loose. Patient has only attempted to grab chest tube twice. Oriented to name only at this time. Will monitor.
--- NOTE | 2019-06-12 23:21 | USCV_ITS ---
Threese Rashid Age: 79 Gender: F : 1940 Exam Date: 06/12/2019 08:47 Ordering Phys: Kirsten Bang MD Technologist: Devan Parada Exam Location: [facility] [place] Indication: PEDAL EDEMA BP: 113 / 62 HR: 83 Rhythm: Sinus Technical Quality: Adequate MEASUREMENTS (Male / Female) Normal Values 2D ECHO LV Diastolic Diameter PLAX 3.3 cm 4.2 - 5.9 / 3.9 - 5.3 cm LV Systolic Diameter PLAX 2.0 cm IVS Diastolic Thickness 0.9 cm 0.6 - 1.0 / 0.6 - 0.9 cm IVS Systolic Thickness 1.1 cm LVPW Diastolic Thickness 0.8 cm 0.6 - 1.0 / 0.6 - 0.9 cm LVPW Systolic Thickness 0.9 cm LVOT Diameter 2.0 cm LV Ejection Fraction 2D Teich 72.1 % LV Ejection Fraction MOD 2C 50.3 % LV Ejection Fraction 2C AL 48.9 % LA Diameter 3.0 cm LA Width 3.2 cm LA Height 4.4 cm RA Width 3.1 cm RA Height 3.9 cm M-MODE LV Diastolic Diameter MM 4.4 cm 4.2 - 5.9 / 3.9 - 5.3 cm LV Systolic Diameter MM 3.4 cm LV Ejection Fraction MM Teich 44.3 % IVS Diastolic Thickness MM 0.9 cm 0.6 - 1.0 / 0.6 - 0.9 cm IVS Systolic Thickness MM 1.1 cm LVPW Diastolic Thickness MM 0.9 cm 0.6 - 1.0 / 0.6 - 0.9 cm LVPW Systolic Thickness MM 1.4 cm RV Diastolic Diameter MM 1.5 cm Aortic Annulus Diameter 3.5 cm LA Ao Ratio MM 0.8 MV E Point Septal Separation 1.3 cm DOPPLER AV Peak Velocity 116.0 cm/s LVOT Peak Velocity 84.0 cm/s AV Area Cont Eq vti 2.5 cm squared AV Area Cont Eq pk 2.3 cm squared MV Area PHT 5.0 cm squared Mitral E to A Ratio 0.6 MV E' Velocity 5.0 cm/s Mitral E to MV E' Ratio 9.6 Mitral E to LV E' Lateral Ratio 11.1 Mitral E to LV E' Septal Ratio 8.4 TR Peak Velocity 213.0 cm/s TR Peak Gradient 18.1 mmHg TV Peak E Velocity 82.0 cm/s Right Atrial Pressure 3.0 mmHg Pulmonary Artery Systolic Pressu 21.1 mmHg FINDINGS Left Ventricle Normal left ventricular cavity size. Normal left ventricular systolic function. No regional wall motion abnormalities. Left ventricular ejection fraction is estimated at 65 %. Grade I/IV diastolic dysfunction (abnormal relaxation filling pattern), normal to mildly elevated filling pressures. Right Ventricle The right ventricle is normal in size and function. Right Atrium The right atrium is normal in size. Left Atrium The left atrium is normal in size. Mitral Valve Moderately thickened mitral valve. Mitral annular calcification. No mitral valve stenosis. No mitral valve regurgitation. Aortic Valve Moderate aortic valve calcification. No aortic valve stenosis. No aortic valve regurgitation. No aortic valve regurgitation. Tricuspid Valve Structurally normal tricuspid valve without significant stenosis or regurgitation. Pulmonary artery systolic pressure is normal. Pulmonic Valve Structurally normal pulmonic valve without significant stenosis. There is no pulmonic regurgitation. Pericardium Normal pericardium without effusion. Aorta Normal ascending aorta dimension. CONCLUSIONS 1-Normal left ventricular cavity size. Normal left ventricular systolic function. No regional wall motion abnormalities. Left ventricular ejection fraction is estimated at 65 %. Grade I/IV diastolic dysfunction (abnormal relaxation filling pattern), normal to mildly elevated filling pressures. 2-There is no pericardial effusion. 3-No significant chamber abnormalities. 4-Pulmonary artery systolic pressure is within normal limits. 5-Right atrial pressure is around 5 mm of mercury. 6-There are no prior echocardiogram studies to compare. Lidia Simons MD (Electronically Signed) Final Date: 12 June 2019 17:28 S
[2019-06-13] VITALS (8 sets, daily range): BP systolic 102–144; BP diastolic 66–77; PULSE 85–94; RESP 14–23; TEMP 36.6–36.9; O2SAT 94–98
--- NOTE | 2019-06-13 04:16 | PC.NURSE ---
Left soft wrist restraint removed with the right one still on;however, not tied. Tolerated bed bath and CLC well. Mckenzie care completed. Denies complaints at this time. Water given without difficulty. Will monitor.
[2019-06-13 05:02] LABS: Monocytes # 1.3 10^3/uL (0.2-0.9); Nucleated Red Blood Cells % 0 %
[2019-06-13 05:12] LABS: Anion Gap 15.9 (5-19); Blood Urea Nitrogen 18 mg/dL (8-23); Calcium 8.9 mg/Dl (8.8-10.2); Carbon Dioxide 32 mmol/L (22-29); Chloride 104 mmol/L (98-107); Glucose 106 mg/dL (74-106); Potassium 3.9 mmol/L (3.5-5.1); Sodium 148 mmol/L (136-145)
[2019-06-13 05:48] LABS: Basophils # 0.1 10^3/uL (0.0-0.1); Basophils % 0.4 %; Eosinophils # 0.1 10^3/uL (0.0-0.8); Eosinophils % 0.7 %; Hematocrit 43.9 % (37.0-47.0); Hemoglobin 13.5 g/dL (11.5-15.3); Lymphocytes # 1.4 10^3/uL (0.8-4.8); Lymphocytes % 12.4 %; Mean Corpuscular HGB Conc 30.8 g/dL (30.0-36.0); Mean Corpuscular Hemoglobin 27.4 pg (28.0-34.0); Monocytes % 11.3 %; Neutrophils # 8.4 10^3/uL (1.8-7.7); Neutrophils % 74.9 %; Platelet Count 420 10^3/cmm (130-400); Red Blood Count 4.93 10^6/uL (4.1-5.3); Red Cell Distribution Width 12.9 % (12.1-15.1); White Blood Count 11.2 10^3/uL (4.0-10.0)
--- NOTE | 2019-06-13 09:49 | PC.CHAP ---
Pastoral Care Encounter/Spiritual Assessment Type of Contact [] Declined learning support specialist visit [] Patient/Family/Request visit [] Outpatient visit [] Follow-up visit [] Physician referral [] Code/Alert [] Routine visit [] Staff referral [] Actively dying [x] Patient sleeping [] Family support [] [] Out of room [] Palliative care [] [] Receiving care in room [] Pre-surgical visit [] Trauma [] Long length of stay [] ICU visit [] Other: Relational/Emotional Strength [] Patient feels connected with others/family/visitors/staff [] Distress [] Loneliness/isolation [] Abandonment Spirituality of Patient [] Person of Charlee [] Attends Congregation of their Charlee [] Believes in Prayer [] Reads Bible or Restorationist materials [] There are Spiritual issues to be addressed Scientific Software Engineer Interventions [] Prayer [] Active listening [] Non-anxious presence [] Spiritual/emotional support [] Crisis/trauma care [] Spiritual counseling [] Bereavement support [] Provided bereavement packet [] Provided Bible/devotional materials [] Provided toy/stuffed animal, coloring book to patient or family member [] Completed spiritual assessment [] Provided Communion [] Anointing/[place] [] Salvation [] Other: Impact on Illness or Injury [] Angry [] Fearful [] Anxious [] Often cries [] Exhaustion [] Unable to work [] Unable to attend denominational [] Unable to walk/stand [] Unable to read [] Unable to drive [] Unable to eat/drink [] Unable to sleep [] Unable to be with family [] Other: Summary Therese resting well. Time spent with patient
[2019-06-13] MEDS: multivitamin therapeutic Tablet 1 TAB PO (10:09)
[2019-06-13] MEDS: donepezil 5 MG Tablet 10 MG PO (10:09)
[2019-06-13] MEDS: memantine 5 mg tablet 10 MG PO ×2 (10:09→17:45)
[2019-06-13] MEDS: amlodipine 10 mg Tablet PO (10:09)
[2019-06-13] MEDS: levothyroxine 88 mcg Tablet PO (10:09)
[2019-06-13] MEDS: atorvastatin 40 mg Tablet 20 MG PO (17:45)
[2019-06-13] MEDS: dextrose 5% 250 ML 75 ML IV (17:45)
--- NOTE | 2019-06-13 21:27 | P.PN_ITS ---
Subjective Subjective: Interval history: Asleep this morning. Wakes up easily. Demands coffee. When asked whether he is in any discomfort or pain, denies, also denies shortness of breath, then again request for coffee. Vitals/I&O/Wt Last Vital Signs Temp 98.1 F 06/13/19 20:00 Pulse 86 06/13/19 15:24 Resp 20 H 06/13/19 20:00 BP 144/66 06/13/19 20:00 Pulse Ox 98 06/13/19 20:00 06/13/19 06/13/19 06/13/19 06:59 14:59 22:59 Intake Total 150 / 330 240 / 240 Output Total 2295 / 4375 175 / 175 Balance -2145 / -4045 240 / 240 -175 / 65 Weight last 48 hrs Weight 62.46 kg Weight 59.738 kg Physical Exam Const: COMMON NORMALS: no apparent distress HENMT: COMMON NORMALS: oropharynx normal Neck/C-Spine: COMMON NORMALS: no JVD Chest: OTHER: Left-sided chest tube connected to Pleur-evac. Resp: COMMON NORMALS: normal respiratory effort and clear to auscultation bilaterally AUSCULTATION: clear to auscultation bilaterally Cardio: COMMON NORMALS: no JVD, regular rhythm, S1 normal heart sound, S2 normal heart sound and no murmurs RHYTHM: regular rhythm HEART SOUNDS: S1 normal and S2 normal GI: COMMON NORMALS: normal to inspection, nondistended, normoactive bowel sounds, soft to palpation and non-tender PALPATION: Yes soft Extremity: COMMON NORMALS: no joint enlargement and no pedal edema Neuro: COMMON NORMALS: moves all extremities Skin: COMMON NORMALS: no rashes or lesions noted GENERAL SKIN EXAM: no rashes or lesions noted Urinary Catheter Management^: Yancey: Cath Placed During This Visit: no A&P Assessment and plan (1) Pleural effusion: Decreasing output from chest tube. Continue to monitor. Bloody pleural effusion. Reported 2400 mL drained in ER after placement of chest tube due to compression of left lung, as well as mediastinal shift to the right. Unfortunately no fluid has been sent to the lab. Etiology is not clear for the bloody effusion. H&P reports unwitnessed fall with patient found down on the floor. She certainly is at risk of falls. Repeat discussion of hospital nursing staff with snf reporting that no fall was seen or suspected. Reported to have had decline in oxygenation. She is afebrile, without leukocytosis, denies chest pain or shortness of breath. On expansion of the left lung appears to have some patchy findings, possibly atelectasis. Pneumonia cannot be entirely excluded, but considered less likely. She denies any shortness of breath. Does not have cough. There is no fever or tachycardia. Has mild leukocytosis. Continue to monitor. Given her risk of falls, with history of falls, at this time would still consider this may be the most likely etiology, otherwise discussed with her son other etiologies are possible including possibilities like malignancy. Given her overall poor functional status, advanced dementia, preference would be given for management of the current pleural effusion, with otherwise emphasis on comfort. She has been on aspirin prior to admission per home medication list, although it is not clear as to why. Her son was not sure. Denies history of LA or CVA. Discontinue aspirin. Status: Acute Code(s): J90 - Pleural effusion, not elsewhere classified (2) Alzheimer's dementia: Advanced dementia. Status: Acute Qualifiers: Alzheimer's disease onset: unspecified onset Dementia behavioral disturbance: without behavioral disturbance Qualified Code(s): G30.9 - Alzheimer's disease, unspecified; F02.80 - Dementia in other diseases classified elsewhere without behavioral disturbance Code(s): G30.9 - Alzheimer's disease, unspecified; F02.80 - Dementia in other diseases classified elsewhere without behavioral disturbance (3) Hypertension: Blood pressures have been at goal. 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
[2019-06-14] VITALS (20 sets, daily range): BP systolic 109–123; BP diastolic 64–77; PULSE 76–95; RESP 16–27; TEMP 36.6–36.8; O2SAT 93–98
--- NOTE | 2019-06-14 04:57 | PC.NURSE ---
Evaluated output from chest tube is 20 cc/hour
--- NOTE | 2019-06-14 05:23 | PC.NURSE ---
PATIENT HAD MINIMAL OUT PUT IN SHELTON CATHETER, CALLED HOSPITALIST SPANISH MEDICAL INTERPRETER, BLADDER SCAN REVEALED 135 CC IN BLADDER, PATENCY CHECKED FOR SHELTON AND IN AT THIS TIME. NO NEW ORDERS RECEIVED, WILL CONTINUE TO MONITOR PATIENT AND NO CHEST TUBE DRAINAGE
[2019-06-14 05:55] LABS: Basophils # 0.1 10^3/uL (0.0-0.1); Basophils % 0.7 %; Eosinophils # 0.3 10^3/uL (0.0-0.8); Hematocrit 46.4 % (37.0-47.0); Hemoglobin 14.2 g/dL (11.5-15.3); Lymphocytes # 1.5 10^3/uL (0.8-4.8); Lymphocytes % 17.5 %; Mean Corpuscular HGB Conc 30.6 g/dL (30.0-36.0); Mean Corpuscular Hemoglobin 28.5 pg (28.0-34.0); Mean Corpuscular Volume 93.2 fL (81-99); Mean Platelet Volume 9.8 fL (7.4-10.4); Monocytes % 12.2 %; Neutrophils # 5.6 10^3/uL (1.8-7.7); Neutrophils % 66.4 %; Nucleated Red Blood Cells % 0 %; Platelet Count 412 10^3/cmm (130-400); Red Blood Count 4.98 10^6/uL (4.1-5.3); Red Cell Distribution Width 12.8 % (12.1-15.1); White Blood Count 8.4 10^3/uL (4.0-10.0)
[2019-06-14 06:20] LABS: Anion Gap 14.3 (5-19); Blood Urea Nitrogen 23 mg/dL (8-23); Calcium 9.1 mg/Dl (8.8-10.2); Carbon Dioxide 30 mmol/L (22-29); Chloride 104 mmol/L (98-107); Glucose 107 mg/dL (74-106); Potassium 4.3 mmol/L (3.5-5.1); Sodium 144 mmol/L (136-145)
--- NOTE | 2019-06-14 06:48 | PC.NURSE ---
NOTIFIED HOSPITALIST REGARDING CRITICAL ON BUN/AND CREATININE LEVEL, NO NEW ORDERS RECEIVED AT THIS TIME.
--- NOTE | 2019-06-14 07:19 | XR_ITS ---
WS: [id number] Portable AP upright chest, 06/14/2019 Clinical Data: doctor request Comparison: Portable chest, 06/12/2019 Findings: The left chest tube has been retreated and now is overlying the subcutaneous tissue of the left chest wall. The left pneumothorax has disappeared. There is partial opacification of the left camila ng unchanged. The right lung is clear. There is a shift of the heart and mediastinum from right to le ft. The aortic arch shows calcification. Monitor leads on the chest wall. XR/XR chest 1V portable [id number] Impression: 1. Left chest tube is overlying the subcutaneous tissue of the left chest. 2. Reexpansion of left lung. 3. No change in partial opacification of left lung.
--- NOTE | 2019-06-14 09:02 | P.PN_ITS ---
Subjective Subjective: Interval history: Ms. Rashid remains pleasant and mental status is unchanged. Does not appear to have any respiratory difficulties. Vitals/I&O/Wt Last Vital Signs Temp 98.3 F 06/14/19 07:08 Pulse 87 06/14/19 07:08 Resp 21 H 06/14/19 07:08 BP 123/77 06/14/19 07:08 Pulse Ox 97 06/14/19 07:08 06/13/19 06/14/19 06/14/19 22:59 06:59 14:59 Intake Total 120 / 120 Output Total 175 / 175 Balance -175 / 65 - 120 / 120 Weight last 48 hrs Weight 133 lb 0.6 oz Weight 137 lb 11.2 oz Physical Exam Chest: COMMONS NORMALS: negative for inspection of chest normal (Chest tube has been dislodged and was essentially out of the pleural cavity with 1 of the holes actually outside the skin) OTHER: I remove the chest tube at bedside and secured with Vaseline gauze and sterile dressing. It appears on the chest x-ray, that the chest tube is clearly dislodged, but fortunately, does not appear to be a pneumothorax. Urinary Catheter Management^: Yancey: Cath Placed During This Visit: no A&P Assessment and plan (1) Pleural effusion: Dislodged chest tube, which has now been removed. It appears that the left pleural cavity is unchanged without evidence of pneumothorax. I have conferred with Dr. Jorgensen at bedside. 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
--- NOTE | 2019-06-14 09:26 | PC.NURSE ---
NURSE ASSISTED DR. WHITLOCK WITH CHEST TUBE REMOVAL.
[2019-06-14] MEDS: levothyroxine 88 mcg Tablet PO (09:49)
[2019-06-14] MEDS: donepezil 5 MG Tablet 10 MG PO (09:49)
[2019-06-14] MEDS: latanoprost 0.005% Op Soln 2.5 mL Btl 1 DROP EYE-BOTH (09:49)
[2019-06-14] MEDS: amlodipine 10 mg Tablet PO (09:50)
[2019-06-14] MEDS: multivitamin therapeutic Tablet 1 TAB PO (09:50)
[2019-06-14] MEDS: memantine 5 mg tablet 10 MG PO ×2 (09:50→17:41)
--- NOTE | 2019-06-14 12:40 | PC.CHAP ---
Pastoral Care Encounter/Spiritual Assessment Type of Contact [] Declined director peoplesoft visit [] Patient/Family/Request visit [] Outpatient visit [x] Follow-up visit [] Physician referral [] Code/Alert [] Routine visit [] Staff referral [] Actively dying [x] Patient sleeping [] Family support [] [] Out of room [] Palliative care [] [] Receiving care in room [] Pre-surgical visit [] Trauma [] Long length of stay [] ICU visit [] Other: Relational/Emotional Strength [] Patient feels connected with others/family/visitors/staff [] Distress [] Loneliness/isolation [] Abandonment Spirituality of Patient [] Person of Charlee [] Attends Nondenominational of their Charlee [] Believes in Prayer [] Reads Bible or Voodoo materials [] There are Spiritual issues to be addressed Ged Tutor Interventions [] Prayer [] Active listening [] Non-anxious presence [] Spiritual/emotional support [] Crisis/trauma care [] Spiritual counseling [] Bereavement support [] Provided bereavement packet [] Provided Bible/devotional materials [] Provided toy/stuffed animal, coloring book to patient or family member [] Completed spiritual assessment [] Provided Communion [] Anointing/Blackey [] Salvation [] Other: Impact on Illness or Injury [] Angry [] Fearful [] Anxious [] Often cries [] Exhaustion [] Unable to work [] Unable to attend catholic [] Unable to walk/stand [] Unable to read [] Unable to drive [] Unable to eat/drink [] Unable to sleep [] Unable to be with family [] Other: Summary Time spent with patient
--- NOTE | 2019-06-14 13:30 | PC.SOCIAL ---
Pg 2 of IMM was not given to patient, she has a 1:1 sitter at this time and no family at bedside.
--- NOTE | 2019-06-14 16:50 | PC.NURSE ---
Noticed PT heels were soft and a little mushy. floated heels & nurse notified.
[2019-06-14] MEDS: atorvastatin 40 mg Tablet 20 MG PO (17:41)
--- NOTE | 2019-06-14 20:53 | P.PN_ITS ---
Subjective Subjective: Interval history: In some discomfort during removal of chest tube, however, participated well, and subsequently without any pain or discomfort. Denies trouble breathing. Vitals/I&O/Wt Last Vital Signs Temp 98 F 06/14/19 20:00 Pulse 90 06/14/19 20:00 Resp 16 06/14/19 20:00 BP 118/71 06/14/19 20:00 Pulse Ox 98 06/14/19 20:00 06/14/19 06/14/19 06/14/19 06:59 14:59 22:59 Intake Total 600 / 600 640 / 1240 Output Total Balance - 600 / 600 640 / 1240 Weight last 48 hrs Weight 60.345 kg Weight 62.46 kg Physical Exam Const: COMMON NORMALS: no apparent distress HENMT: COMMON NORMALS: oropharynx normal Neck/C-Spine: COMMON NORMALS: no JVD Chest: OTHER: Left-sided chest tube removed. Resp: COMMON NORMALS: normal respiratory effort and clear to auscultation bilaterally AUSCULTATION: clear to auscultation bilaterally Cardio: COMMON NORMALS: no JVD, regular rhythm, S1 normal heart sound, S2 normal heart sound and no murmurs RHYTHM: regular rhythm HEART SOUNDS: S1 normal and S2 normal GI: COMMON NORMALS: normal to inspection, nondistended, normoactive bowel sounds, soft to palpation and non-tender PALPATION: Yes soft Extremity: COMMON NORMALS: no joint enlargement and no pedal edema Neuro: COMMON NORMALS: moves all extremities Skin: COMMON NORMALS: no rashes or lesions noted GENERAL SKIN EXAM: no eh hes or lesions noted Urinary Catheter Management^: Yancey: Cath Placed During This Visit: no Data : 06/14/19 05:03 06/14/19 05:03 A&P Assessment and plan (1) Pleural effusion: Low output from the tube. Chest tube removed today. During removal noted partially out, however, without deflation of the lung on x-ray. Repeat chest x-ray in the morning. Discontinue one-to-one sitter. Bloody pleural effusion. Reported 2400 mL drained in ER after placement of chest tube due to compression of left lung, as well as mediastinal shift to the right. Unfortunately no fluid has been sent to the lab. Etiology is not clear for the bloody effusion. H&P reports unwitnessed fall with patient found down on the floor. She certainly is at risk of falls. Repeat discussion of hospital nursing staff with snf reporting that no fall was seen or suspected. Reported to have had decline in oxygenation. She is afebrile, without leukocytosis, denies chest pain or shortness of breath. On expansion of the left lung appears to have some patchy findings, possibly atelectasis. Pneumonia cannot be entirely excluded, but considered less likely. She denies any shortness of breath. Does not have cough. There is no fever or tachycardia. Has mild leukocytosis. Continue to monitor. 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 Given her overall poor functional status, advanced dementia, preference would be given for management of the current pleural effusion, with otherwise emphasis on comfort. She has been on aspirin prior to admission per home medication list, although it is not clear as to why. Her son was not sure. Denies history of SD or CVA. Discontinue aspirin. Status: Acute Code(s): J90 - Pleural effusion, not elsewhere classified (2) Alzheimer's dementia: Advanced dementia. Status: Acute Qualifiers: Alzheimer's disease onset: unspecified onset Dementia behavioral disturbance: without behavioral disturbance Qualified Code(s): G30.9 - Alzheimer's disease, unspecified; F02.80 - Dementia in other diseases classified elsewhere without behavioral disturbance Code(s): G30.9 - Alzheimer's disease, unspecified; F02.80 - Dementia in other diseases classified elsewhere without behavioral disturbance (3) Hypertension: Blood pressures have been at goal. Status: Acute Qualifiers: Hypertension type: essential hypertension Qualified Code(s): I10 - Essential (primary) hypertension Code(s): I10 - Essential (primary) hypertension (4) Hypothyroidism: levothyroxine Status: Acute Qualifiers: Hypothyroidism type: unspecified Qualified Code(s): E03.9 - Hypothyroid ism, unspecified Code(s): E03.9 - Hypothyroidism, unspecified (5) Dyslipidemia: statin Status: Acute Code(s): E78.5 - Hyperlipidemia, unspecified Additional A&P Information Advanced age [place]'s disease Attestations Medical Necessity Statement*: Continue admission for assessment management after drainage of bloody pleural effusion. 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
[2019-06-15] VITALS (12 sets, daily range): BP systolic 108–123; BP diastolic 62–79; PULSE 82–91; RESP 15–22; TEMP 36.6–37.1; O2SAT 92–97
--- NOTE | 2019-06-15 06:00 | XR_ITS ---
WS: [id number] Portable AP upright chest, 06/15/2019 Clinical Data: Hypoxia Comparison: Portable chest, 06/14/2019 Findings: The opacification of the left lung with pleural thickening and elevation of left diaphragm along with left basilar atelectasis remains the same. No left apical pneumothorax is present. The lef t chest tube is no longer alongside the left chest wall. The right lung is clear. There is still a sh ift of the heart and mediastinum from right to left. Monitor leads on the chest wall. XR/XR chest 1V portable [id number] Impression: 1. No change in opacification left lung with extrapleural thickening and elevat ion left diaphragm. 2. No change in shift of the mediastinum and heart from right to left.
[2019-06-15 06:35] LABS: Basophils # 0.1 10^3/uL (0.0-0.1); Basophils % 0.9 %; Eosinophils # 0.2 10^3/uL (0.0-0.8); Eosinophils % 2.4 %; Hematocrit 44.1 % (37.0-47.0); Hemoglobin 13.5 g/dL (11.5-15.3); Lymphocytes # 1.4 10^3/uL (0.8-4.8); Lymphocytes % 18.3 %; Mean Corpuscular HGB Conc 30.6 g/dL (30.0-36.0); Mean Corpuscular Hemoglobin 27.7 pg (28.0-34.0); Mean Corpuscular Volume 90.4 fL (81-99); Monocytes # 0.8 10^3/uL (0.2-0.9); Monocytes % 10.6 %; Neutrophils # 5.3 10^3/uL (1.8-7.7); Neutrophils % 67.5 %; Nucleated Red Blood Cells % 0 %; Platelet Count 398 10^3/cmm (130-400); Red Blood Count 4.88 10^6/uL (4.1-5.3); Red Cell Distribution Width 12.6 % (12.1-15.1); White Blood Count 7.8 10^3/uL (4.0-10.0)
[2019-06-15 06:57] LABS: Alanine Aminotransferase 12 U/L (0-33); Albumin Level 2.9 g/dL (3.5-5.2); Alkaline Phosphatase 105 IU/L (35-105); Anion Gap 15.4 (5-19); Aspartate Amino Transferase 24 U/L (0-32); Blood Urea Nitrogen 23 mg/dL (8-23); Calcium 9.2 mg/Dl (8.8-10.2); Carbon Dioxide 29 mmol/L (22-29); Chloride 108 mmol/L (98-107); Globulin 4.3 g/dL (1.3-4.6); Glucose 109 mg/dL (74-106); Potassium 4.4 mmol/L (3.5-5.1); Sodium 148 mmol/L (136-145); Total Bilirubin 0.4 mg/dL (0.15-1.2); Total Protein 7.2 g/dL (6.6-8.7)
[2019-06-15] MEDS: amlodipine 10 mg Tablet PO (09:02)
[2019-06-15] MEDS: donepezil 5 MG Tablet 10 MG PO (09:02)
[2019-06-15] MEDS: multivitamin therapeutic Tablet 1 TAB PO (09:02)
[2019-06-15] MEDS: memantine 5 mg tablet 10 MG PO ×2 (09:02→17:27)
[2019-06-15] MEDS: latanoprost 0.005% Op Soln 2.5 mL Btl 1 DROP EYE-BOTH (10:16)
--- NOTE | 2019-06-15 14:16 | PC.NURSE ---
SPOKE WITH NURSE AT [facility] ([place]) WHO STATES THAT SHE WAS THE ONE WHO FOUND PATIENT HYPOXIC AND THAT SHE WAS STILL IN HER BED, THAT THERE WAS NO TRAUMA/FALL INVOLVED ; NOTIFIED
[2019-06-15] MEDS: atorvastatin 40 mg Tablet 20 MG PO (17:26)
[2019-06-15] MEDS: levothyroxine 88 mcg Tablet PO (17:26)
--- NOTE | 2019-06-15 20:47 | PM.PN ---
Subjective Subjective: Interval history: With chronic dementia she is not oriented to place or time, however, when asked denies any pain, shortness of breath, or other discomfort. She is cooperative with review of systems and exam. Vitals/I&O/Wt Last Vital Signs Temp 98 F 06/15/19 20:00 Pulse 87 06/15/19 20:00 Resp 16 06/15/19 20:00 BP 108/69 06/15/19 20:00 Pulse Ox 94 06/15/19 20:00 06/15/19 06/15/19 06/15/19 06:59 14:59 22:59 Intake Total / 1265 360 / 360 120 / 480 Balance 25 / 1265 360 / 360 120 / 480 Weight last 48 hrs Weight 60.328 kg Weight 60.146 kg Weight 60.345 kg Physical Exam Const: COMMON NORMALS: no apparent distress HENMT: COMMON NORMALS: oropharynx normal Neck/C-Spine: COMMON NORMALS: no JVD Chest: OTHER: Left-sided chest tube removed. Resp: COMMON NORMALS: normal respiratory effort AUSCULTATION: diminished lung sounds on the left in the lower lung m[place]ott (With improvement from yesterday) Cardio: COMMON NORMALS: no JVD, regular rhythm, S1 normal heart sound, S2 normal heart sound and no murmurs RHYTHM: regular rhythm HEART SOUNDS: S1 normal and S2 normal GI: COMMON NORMALS: normal to inspection, nondistended, normoactive bowel sounds, soft to palpation and non-tender PALPATION: Yes soft Extremity: COMMON NORMALS: no joint enlargement and no pedal edema Neuro: COMMON NORMALS: moves all extremities Skin: COMMON NORMALS: no rashes or lesions noted GENERAL SKIN EXAM: no rashes or lesions noted Urinary Catheter Management^: Yancey: Cath Placed During This Visit: no Data : 06/15/19 05:25 06/15/19 05:25 A&P Assessment and plan (1) Pleural effusion: Clinically she is doing well. She is asymptomatic. On chest x-ray this morning with persistence of opacification of the left lung with pleural thickening and elevation of left diaphragm, left basilar atelectasis, still with shift of the heart and mediastinum from right to left. At this time given overall goals of care would continue conservative management. So far there is no signs of acute infection. She has no respiratory symptoms, no cough, shortness of breath, no fever, tachycardia, is saturating well on room air. Underlying malignancy responsible for her symptoms is possible. We will repeat chest x-ray again in the morning to assess for any additional reaccumulation, with possible discharge tomorrow. Follow-up with pulmonology in office may be considered. Bloody pleural effusion on admission. Reported 2400 mL drained in ER after placement of chest tube due to compression of left lung, as well as mediastinal shift to the right. Unfortunately no fluid has been sent to the lab. Discontinue aspirin. One-to-one sitter was discontinued last night since chest tube had been removed. Status: Acute Code(s): J90 - Pleural effusion, not elsewhere classified (2) Alzheimer's dementia: Advanced dementia. Status: Acute Qualifiers: Alzheimer's disease onset: unspecified onset Dementia behavioral disturbance: without behavioral disturbance Qualified Code(s): G30.9 - Alzheimer's disease, unspecified; F02.80 - Dementia in other diseases classified elsewhere without behavioral disturbance Code(s): G30.9 - Alzheimer's disease, unspecified; F02.80 - Dementia in other diseases classified elsewhere without behavioral disturbance (3) Hypertension: Blood pressures have been at goal. Status: Acute Qualifiers: Hypertension type: essential hypertension Qualified Code(s): I10 - Essential (primary) hypertension Code(s): I10 - Essential (primary) hypertension (4) Hypothyroidism: levothyroxine Status: Acute Qualifiers: Hypothyroidism type: unspecified Qualified Code(s): E03.9 - Hypothyroidism, unspecified Code(s): E03.9 - Hypothyroidism, unspecified (5) Dyslipidemia: statin Status: Acute Code(s): E78.5 - Hyperlipidemia, unspecified Additional A&P Information Advanced age [place]'s disease Attestations Medical Necessity Statement*: Continue admission for assessment and management following evacuation of bloody pleural effusion and preparation for discharge. 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
[2019-06-16] VITALS (9 sets, daily range): BP systolic 113–130; BP diastolic 66–74; PULSE 86–90; RESP 16–23; TEMP 36.6–36.9; O2SAT 92–96
[2019-06-16 05:40] LABS: Basophils # 0.1 10^3/uL (0.0-0.1); Basophils % 0.6 %; Eosinophils # 0.2 10^3/uL (0.0-0.8); Eosinophils % 2.7 %; Hematocrit 47.4 % (37.0-47.0); Hemoglobin 14.3 g/dL (11.5-15.3); Lymphocytes # 1.5 10^3/uL (0.8-4.8); Lymphocytes % 19.1 %; Mean Corpuscular HGB Conc 30.2 g/dL (30.0-36.0); Mean Corpuscular Hemoglobin 28.1 pg (28.0-34.0); Mean Corpuscular Volume 93.3 fL (81-99); Mean Platelet Volume 9.9 fL (7.4-10.4); Monocytes # 0.8 10^3/uL (0.2-0.9); Monocytes % 9.5 %; Neutrophils # 5.4 10^3/uL (1.8-7.7); Neutrophils % 67.8 %; Nucleated Red Blood Cells % 0 %; Platelet Count 404 10^3/cmm (130-400); Red Blood Count 5.08 10^6/uL (4.1-5.3); Red Cell Distribution Width 12.7 % (12.1-15.1); White Blood Count 7.9 10^3/uL (4.0-10.0)
[2019-06-16 05:57] LABS: Alanine Aminotransferase 12 U/L (0-33); Albumin Level 2.9 g/dL (3.5-5.2); Alkaline Phosphatase 115 IU/L (35-105); Anion Gap 16.4 (5-19); Aspartate Amino Transferase 23 U/L (0-32); Blood Urea Nitrogen 26 mg/dL (8-23); Calcium 9.3 mg/Dl (8.8-10.2); Carbon Dioxide 27 mmol/L (22-29); Chloride 107 mmol/L (98-107); Globulin 4.4 g/dL (1.3-4.6); Glucose 86 mg/dL (74-106); Potassium 4.4 mmol/L (3.5-5.1); Sodium 146 mmol/L (136-145); Total Bilirubin 0.4 mg/dL (0.15-1.2); Total Protein 7.3 g/dL (6.6-8.7)
--- NOTE | 2019-06-16 06:00 | XRR_ITS ---
PROCEDURE INFORMATION: Exam: XR Chest, 1 View Exam date and time: 06/16/2019 5:36 AM Age: 79 years old Clinical indication: Hypoxia TECHNIQUE: Imaging protocol: XR of the chest Views: 1 view. COMPARISON: XR CHEST 06/15/2019 5:[address] CHEST 06/11/2019 10:57 PM FINDINGS: Lungs: There is increased airspace disease in the left lung. The right lung is clear. Pleural space: There is a left pleural effusion or pleural thickening, potentially slightly worse in the interval. No pneumothorax. Heart/Mediastinum: The heart is partially silhouetted out but is not felt to be enlarged. The superior mediastinum is widened which could be due to a medially located pleural fluid or consolidated/atelectatic lung. Bones/joints: There are multilevel bridging osteophytes in the spine. Bilateral glenohumeral joint degeneration. XR/XR chest 1V portable [id number] IMPRESSION: Interval worsening of the left lung airspace disease, and potentially increase in left pleural effusion formation.
--- NOTE | 2019-06-16 09:54 | PC.SOCIAL ---
Pg 2 IMM Explained to pt Pg 2 IMM & signed. No questions or concerns voiced by pt. Provided a copy to pt & left on pt's bedside table. Signed, dated, & timed, then placed in chart. Will explain IMM to family when they come see pt.
[2019-06-16] MEDS: latanoprost 0.005% Op Soln 2.5 mL Btl 1 DROP EYE-BOTH (10:22)
[2019-06-16] MEDS: donepezil 5 MG Tablet 10 MG PO (10:23)
[2019-06-16] MEDS: amlodipine 10 mg Tablet PO (10:23)
[2019-06-16] MEDS: memantine 5 mg tablet 10 MG PO ×2 (10:23→19:00)
[2019-06-16] MEDS: multivitamin therapeutic Tablet 1 TAB PO (10:23)
[2019-06-16] MEDS: levothyroxine 88 mcg Tablet PO (10:23)
--- NOTE | 2019-06-16 18:05 | P.PN_ITS ---
Subjective Subjective: Interval history: She is asleep, wakes up easily, pleasant, cooperative. Denies shortness of breath, chest pain. Denies cough. Vitals/I&O/Wt Last Vital Signs Temp 98.0 F 06/16/19 15:16 Pulse 89 06/16/19 15:16 Resp 23 H 06/16/19 15:16 BP 120/69 06/16/19 15:16 Pulse Ox 96 06/16/19 15:16 06/16/19 06/16/19 06/16/19 06:59 14:59 22:59 Intake Total 100 / 580 360 / 360 Output Total 500 / 650 Balance -400 / -70 360 / 360 Weight last 48 hrs Weight 50.303 kg Weight 60.328 kg Weight 60.146 kg Physical Exam Const: COMMON NORMALS: no apparent distress HENMT: COMMON NORMALS: oropharynx normal Neck/C-Spine: COMMON NORMALS: no JVD Chest: OTHER: Left-sided chest tube removed. Resp: COMMON NORMALS: normal respiratory effort AUSCULTATION: diminished lung sounds on the left in the lower lung mcdermott (With improvement from yesterday) Cardio: COMMON NORMALS: no JVD, regular rhythm, S1 normal heart sound, S2 normal heart sound and no murmurs RHYTHM: regular rhythm HEART SOUNDS: S1 normal and S2 normal GI: COMMON NORMALS: normal to inspection, nondistended, normoactive bowel liz nds, soft to palpation and non-tender PALPATION: Yes soft Extremity: COMMON NORMALS: no joint enlargement and no pedal edema Neuro: COMMON NORMALS: moves all extremities Skin: COMMON NORMALS: no rashes or lesions noted GENERAL SKIN EXAM: no rashes or lesions noted Urinary Catheter Management^: Yancey: Cath Placed During This Visit: no Data : 06/16/19 04:36 06/16/19 04:36 A&P Assessment and plan (1) Pleural effusion: Bloody pleural effusion on presentation, status post drainage, with repeat chest x-ray today showing some reaccumulation, as well as patchy areas of atelectasis. Discussed again with her son. At this time clinically we do not see signs of pneumonia. Discussed there may be some persistent slow bleed, versus a more chronic process. Possibly malignancy, Cannot exclude chronic infection. She overall remains asymptomatic. Given reaccumulation, with bloody pleural effusion discussed with her son we will keep her here for additional monitoring, reassess chest x-ray in 1-2 days, and at that point if there is enough fluid and with availability of interventional radiology/pulmonology would perform thoracentesis to collect additional lab studies. For now monitor for development of pneumonia. Bloody pleural effusion on admission. Reported 2400 mL drained in ER after placement of chest tube due to compression of left lung, as well as mediastinal shift to the right. Unfortunately no fluid has been sent to the lab. Discontinue aspirin. Has been doing well without one-to-one sitter since discontinuation of chest tube. Status: Acute Code(s): J90 - Pleural effusion, not elsewhere classified (2) Alzheimer's dementia: Advanced dementia. Status: Acute Qualifiers: Alzheimer's disease onset: unspecified onset Dementia behavioral disturbance: without behavioral disturbance Qualified Code(s): G30.9 - Alzheimer's disease, unspecified; F02.80 - Dementia in other diseases classified elsewhere without behavioral disturbance Code(s): G30.9 - Alzheimer's disease, unspecified; F02.80 - Dementia in other diseases classified elsewhere without behavioral disturbance (3) Hypertension: Blood pressures have been at goal. Status: Acute Qualifiers: Hypertension type: essential hypertension Qualified Code(s): I10 - Essential (primary) hypertension Code(s): I10 - Essential (primary) hypertension (4) Hypothyroidism: levothyroxine Status: Acute Qualifiers: Hypothyroidism type: unspecified Qualified Code(s): E03.9 - Hypothyroidism, unspecified Code(s): E03.9 - Hypothyroidism, unspecified (5) Dyslipidemia: statin Status: Acute Code(s): E78.5 - Hyperlipidemia, unspecified Additional A&P Information Advanced age [place]'s disease Episode of loose stool today: monitor for diarrhea. Attestations Medical Necessity Statement*: Continue admission due to reaccumulating bloody pleural effusion. Coding Level of Care Code Acute Environment Artist for [facility] Fwd Diagnoses Pleural effusion J90 Alzheimer's dementia G30.9; F02.80 Alzheimer's disease onset: unspecified onset Dementia behavioral disturbance: without behavioral disturbance Hypertension I10 Hypertension type: essential hypertension Hypothyroidism E03.9 Hypothyroidism type: unspecified Dyslipidemia E78.5
[2019-06-16] MEDS: atorvastatin 40 mg Tablet 20 MG PO (19:00)
[2019-06-17] VITALS (8 sets, daily range): BP systolic 111–126; BP diastolic 64–75; PULSE 83–99; RESP 16–24; TEMP 36.6–37.2; O2SAT 91–94
[2019-06-17 05:08] LABS: Basophils # 0.1 10^3/uL (0.0-0.1); Basophils % 0.6 %; Eosinophils # 0.2 10^3/uL (0.0-0.8); Hematocrit 41.3 % (37.0-47.0); Hemoglobin 12.9 g/dL (11.5-15.3); Lymphocytes # 1.7 10^3/uL (0.8-4.8); Lymphocytes % 21.8 %; Mean Corpuscular HGB Conc 31.2 g/dL (30.0-36.0); Mean Corpuscular Hemoglobin 28.6 pg (28.0-34.0); Mean Corpuscular Volume 91.6 fL (81-99); Mean Platelet Volume 9.9 fL (7.4-10.4); Monocytes # 0.8 10^3/uL (0.2-0.9); Monocytes % 10.8 %; Neutrophils # 4.9 10^3/uL (1.8-7.7); Neutrophils % 63.4 %; Nucleated Red Blood Cells % 0 %; Platelet Count 365 10^3/cmm (130-400); Red Blood Count 4.51 10^6/uL (4.1-5.3); Red Cell Distribution Width 12.9 % (12.1-15.1); White Blood Count 7.7 10^3/uL (4.0-10.0)
[2019-06-17 05:45] LABS: Procalcitonin 0.08 ng/mL (0-0.8)
[2019-06-17 05:56] LABS: Anion Gap 16.3 (5-19); Blood Urea Nitrogen 21 mg/dL (8-23); Calcium 8.7 mg/Dl (8.8-10.2); Carbon Dioxide 23 mmol/L (22-29); Chloride 106 mmol/L (98-107); Glucose 100 mg/dL (74-106); Potassium 4.3 mmol/L (3.5-5.1); Sodium 141 mmol/L (136-145)
[2019-06-17] MEDS: donepezil 5 MG Tablet 10 MG PO (09:37)
[2019-06-17] MEDS: multivitamin therapeutic Tablet 1 TAB PO (09:37)
[2019-06-17] MEDS: memantine 5 mg tablet 10 MG PO (09:37)
[2019-06-17] MEDS: amlodipine 10 mg Tablet PO (09:38)
--- NOTE | 2019-06-17 20:26 | PM.PN ---
Subjective Subjective: Interval history: When woken up this morning states this is a wonderful place . I feel great here . Denies pain or discomfort. Denies shortness of breath. Vitals/I&O/Wt Last Vital Signs Temp 98.6 F 06/17/19 19:03 Pulse 92 06/17/19 19:03 Resp 18 06/17/19 19:03 BP 111/65 06/17/19 19:03 Pulse Ox 92 06/17/19 19:03 06/17/19 06/17/19 06/17/19 06:59 14:59 22:59 Intake Total 280 / 280 60 / 340 Output Total 250 / 250 Balance -250 / 110 280 / 280 60 / 340 Weight last 48 hrs Weight 61.235 kg Weight 50.303 kg Physical Exam Const: COMMON NORMALS: no apparent distress HENMT: COMMON NORMALS: oropharynx normal Neck/C-Spine: COMMON NORMALS: no JVD Resp: COMMON NORMALS: normal respiratory effort AUSCULTATION: diminished lung sounds on the left in the lower lung mcdermott (With improvement from yesterday) Cardio: COMMON NORMALS: no JVD, regular rhythm, S1 normal heart sound, S2 normal heart sound and no murmurs RHYTHM: regular rhythm HEART SOUNDS: S1 normal and S2 normal GI: COMMON NORMALS: normal to inspection, nondistended, normoactive bowel sounds, soft to palpation and non-tender PALPATION: Yes soft Extremity: COMMON NORMALS: no joint enlargement and no pedal edema Neuro: COMMON NORMALS: moves all extremities Skin: COMMON NORMALS: no rashes or lesions noted GENERAL SKIN EXAM: no rashes or lesions noted Urinary Catheter Management^: Yancey: Cath Placed During This Visit: no Data : 06/17/19 04:43 06/17/19 04:43 A&P Assessment and plan (1) Pleural effusion: Repeat chest x-ray in the morning to assess degree of reaccumulation of pleural effusion. As previously discussed with her son. At this time clinically we do not see signs of pneumonia. Discussed there may be some persistent slow bleed, versus a more chronic process. Possibly malignancy, Cannot exclude chronic infection. She overall remains asymptomatic. If there is enough fluid and with availability of interventional radiology/pulmonology may perform thoracentesis to collect additional lab studies. For now monitor for development of pneumonia. Bloody pleural effusion on admission. Reported 2400 mL drained in ER after placement of chest tube due to compression of left lung, as well as mediastinal shift to the right. Unfortunately no fluid has been sent to the lab. Discontinue aspirin on discharge. Has been doing well without one-to-one sitter since discontinuation of chest tube. Status: Acute Code(s): J90 - Pleural effusion, not elsewhere classified (2) Alzheimer's dementia: Advanced dementia. Has been having difficulty taking several medications, cheeking, not following commands very well. Status: Acute Qualifiers: Alzheimer's disease onset: unspecified onset Dementia behavioral disturbance: without behavioral disturbance Qualified Code(s): G30.9 - Alzheimer's disease, unspecified; F02.80 - Dementia in other diseases classified elsewhere without behavioral disturbance Code(s): G30.9 - Alzheimer's disease, unspecified; F02.80 - Dementia in other diseases classified elsewhere without behavioral disturbance (3) Hypertension: Blood pressures have been at goal. Status: Acute Qualifiers: Hypertension type: essential hypertension Qualified Code(s): I10 - Essential (primary) hypertension Code(s): I10 - Essential (primary) hypertension (4) Hypothyroidism: levothyroxine Status: Acute Qualifiers: Hypothyroidism type: unspecified Qualified Code(s): E03.9 - Hypothyroidism, unspecified Code(s): E03.9 - Hypothyroidism, unspecified (5) Dyslipidemia: statin Status: Acute Code(s): E78.5 - Hyperlipidemia, unspecified Additional A&P Information Advanced age [place]'s disease Episode of loose stool today: monitor for diarrhea. Attestations Medical Necessity Statement*: Continue admission for reassessment of reaccumulating pleural effusion. Coding Level of Care Code Acute Bow Tacker for [facility] Fwd Diagnoses Pleural effusion J90 Alzheimer's dementia G30.9; F02.80 Alzheimer's disease onset: unspecified onset Dementia behavioral disturbance: without behavioral disturbance Hypertension I10 Hypertension type: essential hypertension Hypothyroidism E03.9 Hypothyroidism type: unspecified Dyslipidemia E78.5
--- NOTE | 2019-06-17 20:51 | PC.NURSE ---
Food offered. Pt refused. Will offer again later.
[2019-06-18 04:00] VITALS: BP 112/74; PULSE 82; RESP 18; TEMP 36.9; O2SAT 94
[2019-06-18 05:11] LABS: Basophils # 0.1 10^3/uL (0.0-0.1); Basophils % 0.6 %; Eosinophils # 0.2 10^3/uL (0.0-0.8); Eosinophils % 2.7 %; Hematocrit 42.3 % (37.0-47.0); Hemoglobin 13.3 g/dL (11.5-15.3); Lymphocytes # 1.2 10^3/uL (0.8-4.8); Lymphocytes % 12.9 %; Mean Corpuscular HGB Conc 31.4 g/dL (30.0-36.0); Mean Corpuscular Hemoglobin 28.5 pg (28.0-34.0); Mean Corpuscular Volume 90.8 fL (81-99); Mean Platelet Volume 9.9 fL (7.4-10.4); Monocytes # 0.8 10^3/uL (0.2-0.9); Monocytes % 8.8 %; Neutrophils # 6.7 10^3/uL (1.8-7.7); Neutrophils % 74.6 %; Nucleated Red Blood Cells % 0 %; Platelet Count 387 10^3/cmm (130-400); Red Blood Count 4.66 10^6/uL (4.1-5.3); Red Cell Distribution Width 12.8 % (12.1-15.1)
[2019-06-18 05:42] LABS: Anion Gap 15.9 (5-19); Blood Urea Nitrogen 20 mg/dL (8-23); Calcium 8.9 mg/Dl (8.8-10.2); Carbon Dioxide 25 mmol/L (22-29); Chloride 108 mmol/L (98-107); Glucose 101 mg/dL (74-106); Potassium 3.9 mmol/L (3.5-5.1); Sodium 145 mmol/L (136-145)
--- NOTE | 2019-06-18 06:00 | XR_ITS ---
WS: [id number] CHEST XRAY TECHNIQUE: Portable chest. CLINICAL INFORMATION: Hypoxia COMPARISON: 1 18,020 FINDINGS: Heart: Normal cardiac silhouette. Lungs: Moderate left pleural effusion with interstitial edema in the left upper lobe. Patchy infiltra ayla left midlung. Pleural effusion appears unchanged. Consolidation left lung base. Right lung is wel l aerated. Bones: Normal visualized bony structures. XR/XR chest 1V portable [id number] IMPRESSION: Stable moderate left pleural effusion with consolidation left midlung and left lung base.
[2019-06-18 07:22] VITALS: BP 117/72; PULSE 85; RESP 17; TEMP 36.6; O2SAT 96
[2019-06-18] MEDS: amlodipine 10 mg Tablet PO (08:03)
[2019-06-18] MEDS: levothyroxine 88 mcg Tablet PO (08:03)
[2019-06-18] MEDS: memantine 5 mg tablet 10 MG PO ×2 (08:03→17:25)
[2019-06-18] MEDS: donepezil 5 MG Tablet 10 MG PO (08:03)
[2019-06-18] MEDS: multivitamin therapeutic Tablet 1 TAB PO (08:03)
--- NOTE | 2019-06-18 11:12 | PM.DCS ---
Discharge Providers Date of Admission: 06/11/19 23:20 Date of Discharge: 06/18/19 Attending Provider at Admission: Kirsten Bang MD Attending Provider at Discharge: David Jorgensen Primary Care Provider: Linda Brooke NP Diagnoses at Discharge Discharge Diagnosis (1) Pleural effusion: Status: Acute (2) Alzheimer's dementia: Status: Acute Qualifiers: Alzheimer's disease onset: unspecified onset Dementia behavioral disturbance: without behavioral disturbance Qualified Code(s): G30.9 - Alzheimer's disease, unspecified; F02.80 - Dementia in other diseases classified elsewhere without behavioral disturbance (3) Hypertension: Status: Acute Qualifiers: Hypertension type: essential hypertension Qualified Code(s): I10 - Essential (primary) hypertension (4) Hypothyroidism: Status: Acute Qualifiers: Hypothyroidism type: unspecified Qualified Code(s): E03.9 - Hypothyroidism, unspecified (5) Dyslipidemia: Status: Acute Reason for Visit Reason for Visit: Reason For Visit: PNEUMONIA Hospital Course Hospital Course: 79-year-old lady with history of advanced Alzheimer's dementia, with noted chronic infarctions on CT head, [place]'s disease, HLD [facility], with noted large left-sided pleural effusion, which due to mediastinal shift was drained in ER by placement of chest tube, with 2400 mL of bloody effusion removed, subsequently with decreased output, with removal of the chest tube, with initial reaccumulation of effusion below the left lung, but stabilized over the last several days. The etiology of effusion is not clear, there is questionable history whether or not she may have fallen, but not confirmed. She is at high risk for falls due to her dementia which has progressed over the last month per discussion with her son. Chronic CVA were noted on CT of the head in left temporal and occipital regions, possibly contribute to her recent decline. Her aspirin was discontinued in the hospital due to bloody pleural effusion. Some patchy atelectasis remains initially in the left lung, however, without signs of pneumonia, she has remained afebrile, without leukocytosis, tachycardia or other signs of infection, asymptomatic without shortness of breath, cough, chest pain or other symptoms without any antibiotic treatment. Unfortunately no sample was sent from fluid evacuated by chest tube. Given advanced dementia her son would like to overall avoid overly aggressive procedures if possible. Per discussion with him he understands we at this time cannot exclude that there is not another chronic underlying process responsible for the changes, possibly including also malignancy. Given she has remained stable, asymptomatic we [facility] with follow-up chest x-ray in 3 days, with outpatient follow-up with pulmonology. Aspirin is discontinued at this time. Physical Exam Const: COMMON NORMALS: no apparent distress HENMT: COMMON NORMALS: oropharynx normal Neck/C-Spine: COMMON NORMALS: no JVD Chest: OTHER: Left-sided chest tube removed. Resp: COMMON NORMALS: normal respiratory effort AUSCULTATION: diminished lung sounds on the left in the lower lung mcdermott (With improvement from yesterday) Cardio: COMMON NORMALS: no JVD, regular rhythm, S1 normal heart sound, S2 normal heart sound and no murmurs RHYTHM: regular rhythm HEART SOUNDS: S1 normal and S2 normal GI: COMMON NORMALS: normal to inspection, nondistended, normoactive bowel sounds, soft to palpation and non-tender PALPATION: Yes soft Extremity: COMMON NORMALS: no joint enlargement and no pedal edema Neuro: COMMON NORMALS: moves all extremities Skin: COMMON NORMALS: no rashes or lesions noted GENERAL SKIN EXAM: no rashes or lesions noted Urinary Catheter Management^: Yancey: Cath Placed During This Visit: no Discharge Data Data Completed and Pending: Completed Studies During Hospitalization Category Date Time Status CT chest w con* 7 1260 Urgent Cat Scan 06/11/19 21:[address] head wo con* 7 0450 Urgent Cat Scan 06/11/19 23:21 Completed XR chest 1V sabas ble [id number] Routine Exams 06/12/19 01:42 Completed XR chest 1V sabas ble [id number] Routine Exams 06/14/19 07:19 Completed XR chest 1V sabas ble [id number] Routine Exams 06/15/19 06:00 Completed XR chest 1V sabas ble [id number] Routine Exams 06/16/19 06:00 Completed XR chest 1V sabas ble [id number] Routine Exams 06/18/19 06:00 Completed XR chest 1V sabas ble [id number] Stat Exams 06/11/19 20:21 Completed XR chest 1V sabas ble [id number] Stat Exams 06/12/19 00:24 Completed CV echo complete* [id number] Routine Ultrasound 06/12/19 23:21 Completed Labs from last 24 hours 06/18/19 06/18/19 04:07 04:07 WBC 9.0 RBC 4.66 Hgb 13.3 Hct 42.3 MCV 90.8 MCH 28.5 MCHC 31.4 RDW 12.8 Plt Count 387 MPV 9.9 Neut % (Auto) 74.6 Lymph % (Auto) 12.9 Carter % (Auto) 8.8 Eos % (Auto) 2.7 Baso % (Auto) 0.6 Neut # (Auto) 6.7 Lymph # (Auto) 1.2 Carter # (Auto) 0.8 Eos # (Auto) 0.2 Baso # (Auto) 0.1 Nucleated RBC % (a uto) 0 Nucleated RBCs # 0.0 Sodium 145 Potassium 3.9 Chloride 108 H Carbon Dioxide 25 Anion Gap 15.9 BUN 20 Creatinine 0.6 Glucose 101 Calcium 8.9 Vitals: Last Vital Signs Temp 97.9 F 06/18/19 07:22 Pulse 85 06/18/19 07:22 Resp 17 06/18/19 07:22 BP 117/72 06/18/19 07:22 Pulse Ox 96 06/18/19 07:22 Discharge Plan Discharge Patient Disposition: Home, Self-Care Condition: Stable Prescriptions: New furosemide 20 mg tablet 20 mg PO DAILY 14 Days Qty: 14 RF: 0 Continued latanoprost 0.005 % Drops 1 drp OPHTHALMIC (EYE) DAILY RF: 0 atorvastatin 10 mg Tablet 10 mg PO QPM RF: 0 donepezil 10 mg Tablet 10 mg PO DAILY RF: 0 levothyroxine 88 mcg Tablet 88 mcg PO DAILY RF: 0 Xanax 0.25 mg Tablet 0.25 mg PO DAILY PRN (Reason: Anxiety) RF: 0 Milk of Magnesia 400 mg/5 mL Suspension 5 ml PO DAILY PRN (Reason: Constipation) RF: 0 Remeron 15 mg Tablet 7.5 mg PO BEDTIME RF: 0 Flonase Allergy Relief 50 mcg/actuation [place],Suspension 1 spray INTRANASAL BEDTIME RF: 0 memantine 10 mg Tablet 10 mg PO BID RF: 0 Tylenol 325 mg Capsule 325 mg PO QID PRN (Reason: Pain) RF: 0 Ferrex 150 Forte Plus 150-60-25-1 lr-tb-hgl-mg Capsule 1 cap PO BID RF: 0 Adults Multivitamin 18 mg iron-400 mcg-25 mcg Tablet 1 tab PO DAILY RF: 0 Colace Liq 50 mg/ml suspension 10 ml PO BID PRN (Reason: Constipation) RF: 0 Changed amlodipine 10 mg Tablet 2.5 mg PO DAILY Qty: 0 RF: 0 Discontinued aspirin 81 mg Tablet,Chewable 81 mg PO DAILY RF: 0 Other Ambulatory Orders: XR chest 2V insp/exp [id number] (Routine) Timeframe: 3 Days Facility: [facility] - Location: Radiology [facility] Ordered By: David Jorgensen Referrals: Linda Brooke NP [Primary Care Provider] - None Isai Lechuga MD [Family Provider] - 4-7 days Eve Corea MD [Physician] - 1 week Discharge Diet: Advance as tolerated Activity Restrictions/Additional Instructions: Fall precautions. Assistance with feeding, taking medications. Reposition frequently. Nasal cannula oxygen as needed to maintain saturation 92%. Continue to monitor blood pressure. Discharge Attestations Time Spent in Discharge Care*: greater than 30 min Quality Metrics Clinical Quality Measures During this hospital stay, did patient experience: None Coding Level of Care Code Acute [employer] Solutions Architect for [facility] Fwd Diagnoses Pleural effusion J90 Alzheimer's dementia G30.9; F02.80 Alzheimer's disease onset: unspecified onset Dementia behavioral disturbance: without behavioral disturbance Hypertension I10 Hypertension type: essential hypertension Hypothyroidism E03.9 Hypothyroidism type: unspecified Dyslipidemia E78.5
[2019-06-18 11:16] VITALS: BP 117/72; PULSE 77; RESP 19; TEMP 36.6; O2SAT 92
--- NOTE | 2019-06-18 14:10 | PC.SOCIAL ---
IMM Updated Page 2 of IMM updated and given to patient. Initialed, dated, and timed and placed back in chart.
[2019-06-18 15:43] VITALS: BP 108/60; PULSE 95; RESP 24; TEMP 37.1; O2SAT 94
[2019-06-18] MEDS: atorvastatin 40 mg Tablet 20 MG PO (17:25)
--- NOTE | 2019-06-18 18:48 | PC.CHAP ---
Pastoral Care Encounter/Spiritual Assessment Type of Contact [] Declined floorman visit [] Patient/Family/Request visit [] Outpatient visit [x] Follow-up visit [] Physician referral [] Code/Alert [] Routine visit [] Staff referral [] Actively dying [x] Patient sleeping [] Family support [] [] Out of room [] Palliative care [] [] Receiving care in room [] Pre-surgical visit [] Trauma [] Long length of stay [] ICU visit [] Other: Relational/Emotional Strength [] Patient feels connected with others/family/visitors/staff [] Distress [] Loneliness/isolation [] Abandonment Spirituality of Patient [] Person of Charlee [] Attends Hinduism of their Charlee [] Believes in Prayer [] Reads Bible or Quaker materials [] There are Spiritual issues to be addressed Tableau Analyst Interventions [] Prayer [] Active listening [] Non-anxious presence [] Spiritual/emotional support [] Crisis/trauma care [] Spiritual counseling [] Bereavement support [] Provided bereavement packet [] Provided Bible/devotional materials [] Provided toy/stuffed animal, coloring book to patient or family member [] Completed spiritual assessment [] Provided Communion [] Anointing/[place] [] Salvation [] Other: Impact on Illness or Injury [] Angry [] Fearful [] Anxious [] Often cries [] Exhaustion [] Unable to work [] Unable to attend buddhism [] Unable to walk/stand [] Unable to read [] Unable to drive [] Unable to eat/drink [] Unable to sleep [] Unable to be with family [] Other: Summary Patient was asleep at the time of visit. Visit attempted by Tableau Analyst Humberto Hernandez Time spent with patient 3 minutes
[2019-06-18 19:23] VITALS: BP 106/65; PULSE 99; RESP 19; TEMP 36.8; O2SAT 94
[2019-06-18 23:21] VITALS: BP 111/68; PULSE 92; RESP 16; TEMP 36.9; O2SAT 93
[2019-06-19] VITALS: BP 111/68; PULSE 92; RESP 16; TEMP 36.9
[2019-06-19 03:42] VITALS: BP 113/73; PULSE 90; RESP 16; TEMP 36.6; O2SAT 95
[2019-06-19 04:00] VITALS: BP 113/73; PULSE 90; RESP 16; TEMP 36.6
[2019-06-19 06:51] VITALS: BP 113/73; PULSE 90; RESP 16; TEMP 36.6; O2SAT 95
[2019-06-19 07:19] VITALS: BP 108/63; PULSE 83; RESP 18; TEMP 36.6; O2SAT 96
[2019-06-19] MEDS: donepezil 5 MG Tablet 10 MG PO (08:23)
[2019-06-19] MEDS: levothyroxine 88 mcg Tablet PO (08:23)
[2019-06-19] MEDS: memantine 5 mg tablet 10 MG PO (08:23)
[2019-06-19] MEDS: amlodipine 10 mg Tablet PO (08:23)
[2019-06-19] MEDS: multivitamin therapeutic Tablet 1 TAB PO (08:31)
--- NOTE | 2019-06-19 10:40 | PM.MISC ---
Miscellaneous Note Purpose of Documentation: Transfer to NH 06/19/19 Note: Please refer to discharge summary from 06/18. Transfered to NH early this morning due to a delay with a missing discharge order.
== END 2019-06-19 09:03 | disposition skilled nursing facility (03) | DRG 187 ==
LOC: ER 06-12 01:05 → CSU 06-12 07:29
PROVIDERS: Admitting Provider Family Medicine; Emergency Provider Family Medicine; Family Provider Family Medicine; PCP Nurse Practitioner Family; Visit Provider Internal Medicine
DX: J90 Pleural effusion, not elsewhere classified (principal); J98.11 Atelectasis; Z78.1 Physical restraint status; Z66 Do not resuscitate; I10 Essential (primary) hypertension; E03.9 Hypothyroidism, unspecified; G30.9 Alzheimer's disease, unspecified; F02.80 Dementia in other diseases classified elsewhere, unspecified severity, without behavioral disturbance, psychotic disturbance, mood disturbance, and anxiety; E78.5 Hyperlipidemia, unspecified
CPT/HCPCS: 12345; 32551; 36415; 51702; 70450; 71045; 71260; 80048; 80053; 81003; 84145; 85025; 85610; 86140; 87804; 93306; 96374; 96375; 99284; A4570; J0692; J1940; J2001; J3010; Q9967

== ENCOUNTER 2019-07-17 09:50 | Outpatient (CLI) | payer OTHER, SELFPAY ==
--- NOTE | 2019-07-17 09:55 | XR_ITS ---
WS: [id number] XR chest 2V* [id number] REASON FOR EXAM: pleural effusion FINDINGS: Left lung shows increased pleural effusion extends to the fourth interspace. There is also shift of the mediastinum toward the left side suggesting associated atelectasis. The overall appearance the chest is worsened since previous exam of June 18, 2019. The right lung is well aerated. An hyperaerated. 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
== END 2019-07-17 09:51 | disposition home or self-care (01) ==
LOC: RAD 09:52
PROVIDERS: Family Provider Family Medicine; PCP Nurse Practitioner Family; Visit Provider Internal Medicine Critical Care Medicine
DX: J90 Pleural effusion, not elsewhere classified (principal); J98.11 Atelectasis
CPT/HCPCS: 71046